=== PATIENT | female | born 1965 | race Caucasian/White ===

== ENCOUNTER 2016-08-11 09:24 | Outpatient (CLI) | payer OTHER | END 2016-08-11 09:25 | disposition home or self-care (01) | DX: E11.9 Type 2 diabetes mellitus without complications (principal) ==

== ENCOUNTER 2016-12-15 08:35 | Outpatient (CLI) | payer BC, OTHER ==
[2016-12-15 13:35] LABS: BASOPHILS % (AUTO) 0.5 %; EOSINOPHILS # (AUTO) 0.1 10^3/uL (0.0-0.7); EOSINOPHILS % (AUTO) 1.5 %; HCT - HEMATOCRIT 42.3 % (37.0-47.0); HGB - HEMOGLOBIN 13.9 g/dL (12.0-16.0); LYMPHOCYTES # (AUTO) 2.6 10^3/uL (1.5-3.5); LYMPHOCYTES % (AUTO) 34.8 %; MEAN CORPUSCULAR HGB CONC 32.9 g/dL (32.0-36.0); MEAN CORPUSCULAR VOLUME 85.2 fL (81.0-99.0); MEAN PLATELET VOLUME 7.8 fL (7.9-10.8); MONOCYTES # (AUTO) 0.4 10^3/uL (0.0-1.0); MONOCYTES % (AUTO) 5.6 %; NEUTROPHILS # (AUTO) 4.4 10^3/uL (1.5-6.6); NEUTROPHILS % (AUTO) 57.6 %; NUCLEATED RED BLOOD CELLS AUTO 0.1 /100WBC; RED BLOOD COUNT 4.96 10^6/uL (4.20-5.40); RED CELL DISTRIBUTION WIDTH 13.4 % (12.0-15.0); UNCORRECTED WHITE BLOOD COUNT 7.6 x10^3/uL; WHITE BLOOD COUNT 7.6 x10^3/uL (4.8-10.8)
[2016-12-15 13:53] LABS: HEMOGLOBIN A1C 1.04 g/dL
[2016-12-15 14:01] LABS: ALBUMIN/GLOBULIN RATIO 1.1 (1.0-2.2); BILIRUBIN,TOTAL 0.5 mg/dL (0.2-1.0); BUN - BLOOD UREA NITROGEN 14 mg/dL (6-20); CALCIUM 8.4 mg/dL (8.5-10.3); CARBON DIOXIDE - CO2 23 mmol/L (21-32); CHLORIDE 101 mmol/L (101-111); CHOL/HDL RATIO 5.1 (<4.4); CHOLESTEROL 205 mg/dL; CREATININE 0.5 mg/dL (0.4-1.0); GFR - MDRD 131 (>89); GLUCOSE 196 mg/dL (70-100); HDL CHOLESTEROL 40 mg/dL; LDL/HDL RATIO 2.9 (<4.4); POTASSIUM 3.8 mmol/L (3.5-5.0); SODIUM 134 mmol/L (135-145); TOTAL PROTEIN 7.2 g/dL (6.7-8.2); TRIGLYCERIDES 240 mg/dL; VLDL CHOLESTEROL 48 mg/dL
== END 2016-12-15 08:36 | disposition home or self-care (01) ==
LOC: LAB.WCP 08:35
PROVIDERS: ATTEND Physician Assistant Medical
DX: E11.9 Type 2 diabetes mellitus without complications (principal)
CPT/HCPCS: 36415; 80053; 80061; 83036; 85025

== ENCOUNTER 2017-03-16 07:38 | Outpatient (CLI) | payer BC ==
[2017-03-16 14:33] LABS: CALCIUM 8.7 mg/dL (8.5-10.3); POTASSIUM 3.9 mmol/L (3.5-5.0)
[2017-03-16 14:48] LABS: HEMOGLOBIN A1C 1.07 g/dL
[2017-03-16 14:53] LABS: CREATININE 0.4 mg/dL (0.4-1.0)
== END 2017-03-16 07:39 | disposition home or self-care (01) ==
LOC: LAB.WCP 07:38
PROVIDERS: ATTEND Physician Assistant Medical
DX: E11.9 Type 2 diabetes mellitus without complications (principal)
CPT/HCPCS: 36415; 80048; 83036

== ENCOUNTER 2017-08-17 07:46 | Outpatient (CLI) | payer BC ==
[2017-08-17 13:57] LABS: ALBUMIN 3.5 g/dL (3.2-5.5); ALKALINE PHOSPHATASE 55 IU/L (42-121); ALT ALANINE AMINOTRANSFERASE 21 IU/L (10-60); AST ASPARTATE AMINOTRANSFERASE 21 IU/L (10-42); BILIRUBIN,TOTAL 0.4 mg/dL (0.2-1.0); BUN - BLOOD UREA NITROGEN 10 mg/dL (6-20); CALCIUM 8.4 mg/dL (8.5-10.3); CARBON DIOXIDE - CO2 24 mmol/L (21-32); CHLORIDE 102 mmol/L (101-111); CHOL/HDL RATIO 4.9 (<4.4); CHOLESTEROL 185 mg/dL; CREATININE 0.5 mg/dL (0.4-1.0); GFR - MDRD 131 (>89); GLUCOSE 237 mg/dL (70-100); HDL CHOLESTEROL 38 mg/dL; LDL CHOLESTEROL,CALCULATED 103 mg/dL; LDL/HDL RATIO 2.7 (<4.4); SODIUM 133 mmol/L (135-145); TOTAL PROTEIN 7.1 g/dL (6.7-8.2); VLDL CHOLESTEROL 44 mg/dL
[2017-08-17 14:03] LABS: HB2 TOTAL 15.5 g/dL; HEMOGLOBIN A1C 1.15 g/dL; HEMOGLOBIN A1C % 8.9 % (4.6-6.2)
[2017-08-17 14:40] LABS: BASOPHILS % (AUTO) 0.5 %; EOSINOPHILS # (AUTO) 0.1 10^3/uL (0.0-0.7); EOSINOPHILS % (AUTO) 2.3 %; LYMPHOCYTES # (AUTO) 2.4 10^3/uL (1.5-3.5); LYMPHOCYTES % (AUTO) 43.2 %; MEAN CORPUSCULAR HEMOGLOBIN 28.7 pg (27.0-31.0); MEAN CORPUSCULAR HGB CONC 33.2 g/dL (32.0-36.0); MEAN CORPUSCULAR VOLUME 86.5 fL (81.0-99.0); MEAN PLATELET VOLUME 7.8 fL (7.9-10.8); MONOCYTES # (AUTO) 0.4 10^3/uL (0.0-1.0); MONOCYTES % (AUTO) 7.7 %; NEUTROPHILS # (AUTO) 2.5 10^3/uL (1.5-6.6); NEUTROPHILS % (AUTO) 46.3 %; PLT - PLATELET COUNT 257 10^3/uL (130-450); RED BLOOD COUNT 4.87 10^6/uL (4.20-5.40); WHITE BLOOD COUNT 5.4 x10^3/uL (4.8-10.8)
== END 2017-08-17 07:47 | disposition home or self-care (01) ==
LOC: LAB.WCP 07:46
PROVIDERS: ATTEND Physician Assistant Medical
DX: E11.9 Type 2 diabetes mellitus without complications (principal); D64.9 Anemia, unspecified
CPT/HCPCS: 36415; 80053; 80061; 83036; 83721; 85025

== ENCOUNTER 2018-01-18 07:43 | Outpatient (CLI) | payer BC ==
[2018-01-18 08:20] LABS: ALBUMIN 3.3 g/dL (3.2-5.5); ALBUMIN/GLOBULIN RATIO 0.9 (1.0-2.2); ALKALINE PHOSPHATASE 62 IU/L (42-121); ALT ALANINE AMINOTRANSFERASE 28 IU/L (10-60); AST ASPARTATE AMINOTRANSFERASE 22 IU/L (10-42); BILIRUBIN,TOTAL 0.6 mg/dL (0.2-1.0); BUN - BLOOD UREA NITROGEN 5 mg/dL (6-20); CALCIUM 8.3 mg/dL (8.5-10.3); CARBON DIOXIDE - CO2 24 mmol/L (21-32); CHLORIDE 105 mmol/L (101-111); CHOL/HDL RATIO 3.7 (<4.4); CHOLESTEROL 121 mg/dL; CREATININE 0.5 mg/dL (0.4-1.0); GFR - MDRD 131 (>89); GLUCOSE 263 mg/dL (70-100); HDL CHOLESTEROL 33 mg/dL; LDL CHOLESTEROL,CALCULATED 58 mg/dL; LDL/HDL RATIO 1.8 (<4.4); SODIUM 135 mmol/L (135-145); TOTAL PROTEIN 7.1 g/dL (6.7-8.2); VLDL CHOLESTEROL 30 mg/dL
[2018-01-18 08:22] LABS: HB2 TOTAL 15.2 g/dL; HEMOGLOBIN A1C 1.3 g/dL
== END 2018-01-18 07:44 | disposition home or self-care (01) ==
LOC: LAB 07:43
PROVIDERS: ATTEND Physician Assistant Medical
DX: E11.9 Type 2 diabetes mellitus without complications (principal)
CPT/HCPCS: 36415; 80053; 80061; 82043; 83036; 83721

== ENCOUNTER 2018-07-29 14:00 | Outpatient (CLI) | payer BC | END 2018-07-29 23:59 | disposition home or self-care (01) | LOC: LAB.WCP 14:00 | PROVIDERS: ATTEND Family Medicine | DX: R30.0 Dysuria (principal) | CPT/HCPCS: 87086; 87181 ==

== ENCOUNTER 2018-08-31 09:26 | Outpatient (CLI) | payer BC ==
[2018-08-31 09:56] LABS: CALCIUM 8.5 mg/dL (8.5-10.3); CREATININE 0.5 mg/dL (0.4-1.0)
[2018-08-31 10:19] LABS: HB2 TOTAL 16.1 g/dL; HEMOGLOBIN A1C 1.56 g/dL
== END 2018-08-31 09:27 | disposition home or self-care (01) ==
LOC: LAB 09:26
PROVIDERS: ATTEND Physician Assistant Medical
DX: E11.9 Type 2 diabetes mellitus without complications (principal)
CPT/HCPCS: 36415; 80048; 83036

== ENCOUNTER 2018-11-30 20:00 | Outpatient (CLI) | payer BC | END 2018-11-30 20:01 | disposition critical access hospital (66) | LOC: EMS 20:00 | PROVIDERS: ATTEND Surgery | DX: M54.9 Dorsalgia, unspecified (principal); M25.512 Pain in left shoulder; W10.9XXA Fall (on) (from) unspecified stairs and steps, initial encounter; Y93.01 Activity, walking, marching and hiking; Y92.009 Unspecified place in unspecified non-institutional (private) residence as the place of occurrence of the external cause | CPT/HCPCS: A0425; A0429 ==

== ENCOUNTER 2018-11-30 20:07 | Observation (INO) | payer BC ==
[2018-11-30] MEDS ORDERED: LACTATED RINGERS 1,000 ML IV ONE (20:30)
[2018-11-30 20:59] LABS: BASOPHILS % (AUTO) 0.5 %; EOSINOPHILS # (AUTO) 0.1 10^3/uL (0.0-0.7); EOSINOPHILS % (AUTO) 1.2 %; HGB - HEMOGLOBIN 15.2 g/dL (12.0-16.0); LYMPHOCYTES % (AUTO) 25.5 %; MEAN CORPUSCULAR HEMOGLOBIN 28.6 pg (27.0-31.0); MEAN CORPUSCULAR HGB CONC 32.8 g/dL (32.0-36.0); MEAN CORPUSCULAR VOLUME 87.1 fL (81.0-99.0); MEAN PLATELET VOLUME 7.9 fL (7.9-10.8); MONOCYTES # (AUTO) 0.4 10^3/uL (0.0-1.0); MONOCYTES % (AUTO) 5.5 %; NEUTROPHILS # (AUTO) 5.3 10^3/uL (1.5-6.6); NEUTROPHILS % (AUTO) 67.3 %; PLT - PLATELET COUNT 272 10^3/uL (130-450); RED BLOOD COUNT 5.33 10^6/uL (4.20-5.40); RED CELL DISTRIBUTION WIDTH 13.5 % (12.0-15.0); WHITE BLOOD COUNT 7.8 x10^3/uL (4.8-10.8)
[2018-11-30 21:07] LABS: CALCIUM 9.4 mg/dL (8.5-10.3); CREATININE 0.6 mg/dL (0.4-1.0)
[2018-11-30] MEDS ORDERED: HYDROmorphone 1 MG/ML CARPUJECT IVP STA ×2 (21:11)
--- NOTE | 2018-11-30 22:02 | ED Physician Documentation ---
PD HPI MAJOR TRAUMA - Stated complaint Stated Complaint: FELL DOWN STAIRS - Chief complaint Chief Complaint: Trauma Ch/Bk - History obtained from History obtained from: Patient, Family - History of Present Illness Mechanism of injury: Fell (down 7 steps, backwards onto left back) Where injury occurred: Home Timing - onset: Other (just prior to arrival) Injury(ies) location: Back, Left Uppper Extremity (left shoulder) Pain level max: 6 Pain level now: 6 Quality of pain: Pain, Aching Associated symptoms: LOC. No: AMS, Neck pain, Weakness, Paresthesias, Dyspnea, Nausea / vomiting, Hematemesis, Abdominal distension Symptoms improve with: Nothing Worsens with: Palpation Contributing factors: No: Anticoagulated, Intoxicated Similar symptoms before: Has not had sx before Recently seen: Not recently seen - Additional information Additional information: Pt brought in by EMS who placed pt on a back board and in Cspine precautions after pt found at bottom of stairs. She states before falling she was very dizzy and lightheaded at the top of the stairs. Pt has hx of chronic back pain. States she also has R eyebrow bruising from yesterday when she went to get up quickly and passed out hitting her forehead on tthe table. Review of Systems Ten Systems: 10 systems reviewed and negative Constitutional: denies: Fever, Chills Throat: denies: Sore throat Cardiac: reports: Palpitations. denies: Chest pain / pressure Respiratory: denies: Dyspnea, Cough GI: reports: Nausea. denies: Abdominal Pain, Abdominal Swelling, Vomiting Skin: reports: Reviewed and negative Musculoskeletal: reports: Back pain. denies: Neck pain, Extremity pain, Joint pain, Extremity swelling, Joint swelling Neurologic: reports: Syncope, LOC. denies: Generalized weakness, Focal weakness, Numbness, Difficulty speaking PD PAST MEDICAL HISTORY - Past Medical History Past Medical History: Yes Cardiovascular: None Respiratory: None Endocrine/Autoimmune: Type 2 diabetes GI: Chronic diarrhea : Frequency HEENT: Dental implants Psych: Anxiety Musculoskeletal: Fibromyalgia, Chronic back pain Derm: None - Past Surgical History Past Surgical History: Yes General: Cholecystectomy, Other Ortho: Rotator cuff repair /[employer]: section, Tubal ligation - Present Medications Home Medications: Ambulatory Orders Medication Instructions Recorded Confirmed Canagliflozin [Invokana] 300 mg PO DAILY 03/16/15 04/17/16 Gabapentin [Neurontin] 600 mg PO TID 03/16/15 04/17/16 Pantoprazole [Protonix] 40 mg PO DAILY 03/16/15 04/17/16 metFORMIN [Glucophage] 1,000 mg PO BIDWM 03/16/15 04/17/16 Cyclobenzaprine [Flexeril] 10 mg PO TID PRN 04/17/16 04/17/16 DULoxetine [Cymbalta] 90 mg PO DAILY 04/17/16 04/17/16 Hydrocodone/Acetaminophen 1 tab PO BID PRN 04/17/16 04/17/16 [Hydrocodon-Acetaminophen 5-325] Topiramate 50 mg PO DAILY 04/17/16 04/17/16 - Allergies Allergies/Adverse Reactions: Allergies Allergy/AdvReac Type Severity Reaction Status Date / Time No Known Drug Allergies Allergy Verified 03/16/15 07:31 - Social History Does the pt smoke?: No Smoking Status: Never smoker Does the pt have substance abuse?: No - Immunizations Immunizations are current?: Yes - POLST Patient has POLST: No PD ED PE NORMAL - Vitals Vital signs reviewed: Yes - General General: Alert and oriented X 3, No acute distress, Well developed/nourished - HEENT HEENT: Atraumatic, PERRL, EOMI, Moist mucous membranes, Pharynx benign - Neck Neck: Supple, no meningeal sign, No bony TTP, No JVD - Cardiac Cardiac: RRR, No murmur, No gallop, No rub - Respiratory Respiratory: No respiratory distress, Clear bilaterally - Abdomen Abdomen: Soft, Non tender, Non distended - Female Female : Deferred - Rectal Rectal: Deferred - Back Back: No CVA TTP - Derm Derm: Normal color, Warm and dry, No rash - Extremities Extremities: No deformity, No tenderness to palpate, Normal ROM s pain, No edema, No calf tenderness / cord - Neuro Neuro: Alert and oriented X 3 Eye Opening: Spontaneous Motor: Obeys Commands Verbal: Oriented GCS Score: 15 - Psych Psych: Normal mood, Normal affect PD ED PE EXPANDED - HEENT HEENT: Atraumatic. No: Head injury - Cardiac Cardiac: Other. No: Chest wall TTP (no crepitus) - Respiratory Respiratory: Clear to ausultation jose. No: Distress - Abdomen Abdomen: Normal Bowel sounds. No: Distended, Rebound, Guarding - Back Back: Straight leg raise + R, Straight leg raise + L. No: Normal ROM, Vertebral tenderness, Limited ROM - Extremities Extremities: Normal. No: Deformity, Tenderness, Limited ROM, Swelling, Bruising, Abrasion, Laceration Results - Vitals Vitals: Vital Signs - 24 hr 11/30/18 20:11 Temperature 36.5 C Heart Rate 113 H Respiratory 18 Rate Blood Pressure 134/96 H O2 Saturation 98 Oxygen O2 Source Room air - EKG (time done) No standard instances Rate: Rate (enter#) (103), Tachy Rhythm: Sinus tachycardia Clio: Normal Intervals: Prolonged QT (490) Ischemia: Normal ST segments Other comments: Other comments (repeat EKG QTC 512, rate 91, normal sinus rhythm) - Labs Labs: Laboratory Tests 11/30/18 11/30/18 11/30/18 20:54 20:54 20:54 WBC 7.8 RBC 5.33 Hgb 15.2 Hct 46.4 MCV 87.1 MCH 28.6 MCHC 32.8 RDW 13.5 Plt Count 272 MPV 7.9 Neut # (Auto) 5.3 Lymph # (Auto) 2.0 Love # (Auto) 0.4 Eos # (Auto) 0.1 Baso # (Auto) 0.0 Absolute Nucleated RBC 0.00 Nucleated RBC % 0.0 Sodium 139 Potassium 4.2 Chloride 106 Carbon Dioxide 22 Anion Gap 11.0 BUN 11 Creatinine 0.6 Estimated GFR (MDRD) 105 Glucose 291 H Calcium 9.4 Magnesium 1.8 Procedures - FAST exam (time) No standard instances FAST exam: No: Free fluid RUQ, Free fluid LUQ, Free fluid suprapubic, Pe ricardial effusion, Pneumothorax, right, Pneumothorax, left PD MEDICAL DECISION MAKING - ED course Complexity details: reviewed results, re-evaluated patient, considered differential, d/w patient, d/w family ED course: DDx -arrhythmia, pneumothorax, hemothorax, rib fracture, shoulder sprain, shoulder fracture, contusion, cspine injury, head injury, dehydration, orthostatic hypotension, vertigo. 53 y/o F with hx of chronic pain, fibromyalagia, diabetes, migraines fell down 7 steps today with negative eval for trauma. Negative head ct and cspine neg. CXR and L shoulder xray neg. No back or chest or abdominal tenderness. Neuro intact, equal strength and sensation of Upper and lower extremities. labs show normal electrolytes and moderate hyperglycemia. Multiple EKGs show QTC which is prolonged as much as 512. Given multiple syncopal episodes over 2 days feel pt needs admission for monitor ing, telemetry and futher eval. Departure - Departure Disposition: 66 [facility] DC/Xfer Clinical Impression: Prolonged QT interval, Fall (on) (from) other stairs and steps, initial encounter Syncope Qualifiers: Syncope type: unspecified Qualified Code(s): R55 - Syncope and collapse Condition: Stable Record reviewed to determine appropriate education?: Yes
--- NOTE | 2018-11-30 22:11 | CT Report ---
Reason: fall down stairs, LOC Procedure Date: 11/30/2018 Accession Number: [id number] / [id number] Procedure: CT - HEAD WO CPT Code: FULL RESULT: EXAM: CT HEAD EXAM DATE: 11/30/2018 09:47 PM. CLINICAL HISTORY: Fall down stairs, loss of consciousness. COMPARISON: HEAD W/O 11/20/2015 10:03 PM. TECHNIQUE: Multiaxial CT images were obtained from the foramen magnum to the vertex. Reformats: Sagittal and coronal. IV contrast: None. In accordance with CT protocol optimization, one or more of the following dose reduction techniques were utilized for this exam: automated exposure control, adjustment of mA and/or KV based on patient size, or use of iterative reconstructive technique. FINDINGS: Parenchyma: No intraparenchymal hemorrhage. No evidence of mass, midline shift, or CT findings of infarction. Palomares-white differentiation is distinct. Extraaxial Spaces: Normal for age. No subdural or epidural collections identified. Ventricles: Normal in size and position. Sinuses and Orbits: Bilateral optic nerve drusen again noted. Bones: No evidence of fracture or calvarial defect. Other: None. IMPRESSION: No acute or focal intracranial abnormality. [facility]
--- NOTE | 2018-11-30 22:19 | CT Report ---
Reason: fall down 7 stairs, distracting injury Procedure Date: 11/30/2018 Accession Number: [id number] / [id number] Procedure: CT - CERVICAL SPINE WO CPT Code: FULL RESULT: EXAM: CT CERVICAL SPINE WITHOUT CONTRAST DATE: 11/30/2018 09:50 PM. HISTORY: Fall down 7 stairs, distracting injury. COMPARISONS: None. TECHNIQUE: Thin-section axial images were acquired of the cervical spine without contrast. Post-processing: Coronal and sagittal reformats. Other: None. In accordance with CT protocol optimization, one or more of the following dose reduction techniques were utilized for this exam: automated exposure control, adjustment of mA and/or KV based on patient size, or use of iterative reconstructive technique. FINDINGS: Alignment: No scoliosis or spondylolisthesis. Bones: No fracture or bone lesion. Interspace Levels/Facets: C1-C2: Unremarkable. C2-C3: Unremarkable. C3-C4: Unremarkable. C4-C5: Unremarkable. C5-C6: Unremarkable. C6-C7: Unremarkable. C7-T1: Unremarkable. Musculature: Normal. No fatty atrophy. Other: The paravertebral and prevertebral soft tissues are unremarkable. The lung apices are clear. IMPRESSION: No fracture identified in the cervical spine. [facility]
--- NOTE | 2018-11-30 22:29 | XRAY Report ---
Reason: fall down stairs, L shoulder pain Procedure Date: 11/30/2018 Accession Number: [id number] / [id number] Procedure: XR - Shoulder 2 View LT CPT Code: FULL RESULT: EXAM: LEFT SHOULDER RADIOGRAPHY EXAM DATE: 11/30/2018 10:07 PM. CLINICAL HISTORY: Fall down stairs. Left shoulder pain. COMPARISON: CHEST 1 VIEW 11/30/2018 9:46 PM. TECHNIQUE: 2 views. FINDINGS: Bones: Normal. No fracture or bone lesion. Joints: The glenohumeral and acromioclavicular joints are normal. Soft tissues: The visualized hemithorax is unremarkable. No soft tissue calcification. IMPRESSION: Normal shoulder radiography. [facility]
--- NOTE | 2018-11-30 22:30 | XRAY Report ---
Reason: chest pain Procedure Date: 11/30/2018 Accession Number: [id number] / [id number] Procedure: XR - Chest 1 View X-Ray CPT Code: 12180 FULL RESULT: EXAM: CHEST RADIOGRAPHY EXAM DATE: 11/30/2018 10:07 PM. CLINICAL HISTORY: Chest pain after fall down stairs. COMPARISON: 03/29/2015 4:27 PM. TECHNIQUE: 1 view. FINDINGS: Lungs/Pleura: No focal opacities evident. No pleural effusion. No pneumothorax. Mediastinum: Within exam limitations, the cardiomediastinal contour is normal. Other: No fracture identified. IMPRESSION: Normal single view chest. [facility]
[2018-11-30] MEDS ORDERED: KETOROLAC 30 MG/ML VIAL IVP STA (23:02)
[2018-11-30] MEDS ORDERED: ONDANSETRON ODT 4 MG TABLET TL PRN (23:18)
[2018-11-30] MEDS ORDERED: SODIUM CHLORIDE FLUSH 0.9% 10 ML SYRINGE IVP PRN (23:18)
[2018-11-30] MEDS ORDERED: ONDANSETRON 4 MG/2 ML VIAL IVP PRN (23:18)
[2018-11-30] MEDS ORDERED: CYCLOBENZAPRINE 10 MG TABLET PO PRN (23:19)
--- NOTE | 2018-11-30 23:31 | HISTORY & PHYSICAL EXAMINATION ---
Chief Complaint - Chief Complaint Chief Complaint: found down at bottom of 7 steps after syncope History of Present Illness - Admitted From Admitted From:: Home/ER - History Obtained From Records Reviewed: [facility] and [facility] Ex[facility] Limitations: none - History of Present Illness HPI Comment/Other: For several years now she has had 3 types of separate episodes. One episode is associated with sudden staring, entire body stiffens as she sits or stands. She was usually sitting, and she will be out of it for seconds at a time until her body relaxes and she has no idea that she has some type of jerking stiffening spasming. The second episode she has is that of headache, photophobia, overwhelming nausea and spasmodic jerking movements of her extremities. A final third episode she has is syncope. She has been having syncope for years. She is addy if she can go 6 weeks without an episode of passing out. They happen at any time, any place. No specific inciting event or food. She will get a sudden "wash" inside of her head. And a flash of a moment she is down on the floor unconscious. It can happen when she sitting at the dinner table. It can happen laying down. It can happen walking across room. She is given up driving because she does not know when these episodes are going to happen. She is fallen bedrooms and hurt her hip, and some of her body joints but has never really smacked her head. This last time, on Thursday night, she was standing at the sink washing dishes. She felt the sudden washing her head, and the next thing she knows she is going down on the floor. She does not remember passing out, but she must of hit her face as she hit the counter on her way down to the floor. There is no loss of bowel or bladder incontinence with this. On Thursday evening she was watching TV with her . Got up to go to the bathroom and walked across the living room to get to the bedroom. Has been immediately noticed that she was "wobbling". She had that "look" like she always gets when she is about to pass out. He asked her if she was okay and he got up to follow her to make sure she stayed stable. But as she passed the steps in the hallway that went downstairs, she suddenly passed out and went down the stairs landing on her left body. He was less if she were a ragdoll that "suddenly just dropped". There is no tonic-clonic jerking movements. No bowel or bladder incontinence. She was unconscious for only a few moments and then woke up in pain because of falling on her left shoulder. She decided to come in today because she had 2 more episodes of syncope. Her felt that she should have been evaluated yesterday when she fell down the stairs. As such she presented to the emergency room with his history. She has chronic pain syndrome from her fibromyalgia, osteoarthritis, and migraine headaches. She uses Flexeril, Cymbalta, gabapentin. In the past she used to use amitriptyline. Current opioid use is steady at 1 to 2 tablets a day and remains unchanged in review of the medical record. This was done with a neurological evaluation because of episodes of difficulty with speech, headaches, facial numbness, weakness and gait instability as well as visual disturbances. In the and these were felt to be associated with migraine headaches.Carotid and vertebral ultrasounds were normal in August 2015. She did have an EEG during sleep in October 2015. It was a mildly diffusely nonspecifically slow electroencephalogram. No abnormalities to suggest a destructive cortical lesion and no distinctive epileptiform activity was noted.Pseudotumor cerebri was considered but was felt to be less likely. She was treated with Topamax. And then in November 2015 had a rather sudden onset of severe headache, global, associated with severe photophobia, and there was some slight jerking of her extremities suggestive of a seizure. She was seen in our emergency room where a lumbar puncture was unremarkable, a CT of the head was unremarkable and she was placed in observation overnight. She was unable to do an MRI because she could not sit still. She has not seen her neurologist since his half-way in 2017. She has not had a repeat EEG or neurological evaluation. In our emergency room she had a slight tachycardia to 113 with a normal blood pressure 134/96. Respirations were 18 she was 98% on room air. She had no neurological deficits. She is a tall morbidly obese female on exam with a normal cardiac, lung, and abdominal exam. However, she has a right black eye. A bruise on the lateral deltoid head. Her labs are unremarkable other than a glucose of 291. CBC was normal. And shoulder x-ray, chest x-ray head CT and cervical spine CT are all without fractures, subdurals, or acute changes. The only abnormality noted is a prolonged QT syndrome. She is now placed in observation for work-up of syncope. History - Past Medical History Cardiovascular: reports: High cholesterol Respiratory: reports: Asthma (intermittent and mild) Neuro: reports: None, Migraines Endocrine/Autoimmune: reports: Type 2 diabetes (uncontrolled with diet and metformin, A1c 11% 08/2018) GI: reports: GERD, Colon polyps (Had one 02/2015. Leiomyoma removed. Next one done 03/2016. Path neg.), Chronic diarrhea (from IBS) : reports: Chronic bladder infection, Frequency, Other (G3P) HEENT: reports: Dental implants Psych: reports: Anxiety Musculoskeletal: reports: Osteoarthritis (with spine degeneration), Fibromyalgia (seen by Spencer Todd MD at [facility] for migraines but seen by Alek Anthony MD for fibromyalgia. ), Chronic back pain Derm: reports: None MRSA Hx?: No Other Past Medical History: Chronic bilateral lacrimal glad enlargement - Past Surgical History General: reports: Cholecystectomy, Other Ortho: reports: Rotator cuff repair (left) /DISTRIBUTION SPEC: reports: section, Tubal ligation - Family & Social History Family History Comment/Other: Father of an a myocardial infarction at the age of 67. Mother has fibromyalgia, type 2 diabetes mellitus, osteoarthritis, spinal degeneration. One sister has problems with her spine from spinal degeneration. Child is healthy Living arrangement: At home Living Situation: With spouse/s.o., With family Social History Notes: Former smoker. She started about the age 27. And smoked for 16 years and quit in 2007. The most she smoked was 1 pack/day. No history of alcohol abuse. to her Second of 9 years, they live in their own home and she takes care of her grandchild who is approximately 15 now. Previous healthcare was in [place] before she moved to [facility]. She has been on disability for 4-5 years because of her fibromyalgia diagnosed in [place]. She met her second online through her children playing [employer]. He was from [place]. She came to live with him and they lived in [place] for a while and then moved [facility]. - Substance History Use: Uses substance without health or social issues: NONE, Opioid (Chronic opioid use for decades. Usually uses no more than 2 a day at most. Has a controlled substance agreement with her PCP on file. ) Use Issues: uncomplicated Abuse: Recurrent use of substance despite neg consequences: NONE Dependence: Experiences withdrawal or developed tolerances: NONE - POLST Patient has POLST: No POLST Status: Full Code Meds/Allgy - Home Medications Home Medications: Ambulatory Orders Medication Instructions Recorded Confirmed Canagliflozin [Invokana] 300 mg PO DAILY 03/16/15 04/17/16 Gabapentin [Neurontin] 600 mg PO TID 03/16/15 04/17/16 Pantoprazole [Protonix] 40 mg PO DAILY 03/16/15 04/17/16 metFORMIN [Glucophage] 1,000 mg PO BIDWM 03/16/15 04/17/16 Cyclobenzaprine [Flexeril] 10 mg PO TID PRN 04/17/16 04/17/16 DULoxetine [Cymbalta] 90 mg PO DAILY 04/17/16 04/17/16 Hydrocodone/Acetaminophen 1 tab PO BID PRN 04/17/16 04/17/16 [Hydrocodon-Acetaminophen 5-325] Topiramate 50 mg PO DAILY 04/17/16 04/17/16 - Allergies Allergies/Adverse Reactions: Allergies Allergy/AdvReac Type Severity Reaction Status Date / Time No Known Drug Allergies Allergy Verified 03/16/15 07:31 Review of Systems - Constitutional Constitutional: reports: Fatigue, Weakness - Eyes Eyes: reports: Other (photophobia w migraines). denies: Pain, Irritation, Amaurosis, Blurred vision - Ears, Nose & Throat Ears, Nose & Throat: denies: Tinnitus, Nosebleeds, Nasal obstruction, Nasal congestion, Sore throat - Cardiovascular Cariovascular: reports: Lightheadedness, Syncope. denies: Irregular heart rate, Palpitations, Chest pain, Edema, Exertional dyspnea, Decr. exercise tolerance - Respiratory Respiratory: reports: Wheezing (mild and intermittent in her life, not a problem iin PCP notes). denies: Cough, Sputum production, Hemoptysis, Orthopnea, SOB at rest - Gastrointestinal Gastrointestinal: reports: Diarrhea (negative for microscopic colitis on scope). denies: Abdominal pain, Abdominal distention, Constipation, Change in bowel habits, Rectal bleeding - Genitourinary Genitourinary: reports: Dysuria, Frequency, Urgency, Incontinence. denies: Hematuria, Flank pain, Nocturia - Musculoskeletal Musculoskeletal: reports: Muscle pain, Back pain, Muscle aches, Stiffness, Limited range of motion, Joint pain. denies: Muscle weakness, Gout, Joint swell ing - Integumentary Integumentary: denies: Rash, Pruritis, Lesions, Dryness - Neurological Neurological: reports: Headache. denies: General weakness, Focal weakness, Dizziness, Numbness, Memory problems - Psychiatric Psychiatric: reports: Depression (Depression has been worse lately. She is getting so frustrated with daily pain. She goes to sleep and pain, she wakes up in pain. She is no longer able to do any of the things she used to like to do.), Anxiety. denies: Suicidal, Delusions, Hallucinations - Endocrine Endocrine: denies: Polyuria, Polydypsia, Polyphagia - Hematologic/Lymphatic Hematologic/Lymphatic: denies: Anemia, Bruising, Petechiae Prior Level of Functionality: She does light housework. She is able to do light cooking. Feeds herself, dresses herself without aid from her . She no longer drives because she is afraid that any 1 of her 3 episodes will cause her to crash her car and harm herself or someone else. She does not use any durable medical equipment. Exam - Vital Signs Reviewed Vital Signs: Yes Vital Signs: Vital Signs x48h Temp Pulse Resp BP Pulse Ox 11/30/18 20:11 36.5 C 113 H 18 134/96 H 98 - Physical Exam General Appearance: positive: No acute distress, Alert, Other (6 foot tall, 162 kg white female who I observed getting out of bed, walking to the bathroom, washing her face, getting back in bed without any assistance, ataxia but mild to moderate achiness especially in the left shoulder) Eyes Bilateral: positive: PERRL, Other (Periorbital edema right eye with a black eye that is now developing) ENT: positive: Pharynx nml Neck: positive: No JVD. negative: Stiff neck, Carotid bruit Respiratory: positive: Chest non-tender, Other (Breath sounds diminished at bases but she is breathing without any increased respiratory effort and speaking to me and she has no increased respiratory effort and getting up to walk to the bathroom). negative: Wheezes, Rales, Rhonchi Cardiovascular: positive: Regular rate & rhythm. negative: JVD present, Systolic murmur, Gallop/S4 Peripheral Pulses: positive: 1+ Abdomen: positive: Nml bowel sounds, No distention, Tenderness (Over the left side of her abdominal wall just below her rib cage in the mid axillary line. She thinks she hurt herself as she fell down the stairs.), Other (Very large pannus, unable to assess for organomegaly). negative: Guarding, Rebound Skin: positive: Color nml, Warm, Dry Extremities: positive: Pedal edema (Trace and minimal around ankles), Other (Left shoulder joint aches. But no heat, bogginess or effusions palpated.Full range of motion on passive range of motion) Neurologic/Psychiatric: positive: Oriented x3, CN's nml (2-12), Motor nml, Sensation nml Conclusion/Plan - Problem List (1) Syncope Conclusion/Plan: This is an unfortunate female who has chronic pain syndrome and uses seizure medications, opiates, muscle relaxants. All of these could interact and cause her to be dizzy and lightheaded and to fall. She also takes Elavil, and has a prolonged QT syndrome EKG and there is a possibility of V. tach that is not documented on telemetry. She also describes changes in mental status that are acutely sudden and acutely resolving with LOC for years. Nevertheless, she is been having the same episodes of syncope over the last few days, that she's had before, but now she has really hurt herself. She was standing at the head of the stairs yesterday when she became dizzy lightheaded and fell down the stairs with syncope. CT of the head is negative. Plan: Observation Work-up for syncope including carotid Dopplers, echocardiogram, telemetry monitoring. With her previous episodes for possible seizures she is already had an EEG, carotid Dopplers and those were taken into account. Once this preliminary work-up is been completed, she will then need to seek outpatient evaluation with her ongoing relationship with neurology for further work-up of possible seizures. She may need an event monitor with cardiology. Qualifiers: Syncope type: unspecified Qualified Code(s): R55 - Syncope and collapse (2) Prolonged QT interval Conclusion/Plan: While antidepressant such as mirtazapine, citalopram, venlafaxine, trazodone, nortriptyline, desipramine, amitriptyline, etc. can cause prolonged QT. Duloxetine is not noted. Anti-convulsion drug such as fosphenytoin and felbamate are associated with prolonged QT but Neurontin and Topamax are not. She is not on Zofran. She is not on antipsychotics. She is not on any bron chodilators that are long-acting. Her electrolytes are normal including magnesium. Plan: Resume her usual medications at this time. Check EKG in the morning Toxicology screen for ELECTRICAL FITTER stimulants. (3) Fall (on) (from) other stairs and steps, initial encounter Conclusion/Plan: Evaluated by ER physician, and radiologic studies include a shoulder x-ray, chest x-ray, head CT, and cervical spine CT. No fractures noted. (4) Type II diabetes mellitus with complication, uncontrolled Conclusion/Plan: Hyperglycemia noted. A1c was at 11% in August. Will hold metformin at this time, patient may take on Invokana. Add sliding scale short acting insulin before meals.Hypoglycemia does not appear to be the cause of her syncope. (5) Chronic pain syndrome Conclusion/Plan: Due to fibromyalgia, osteoarthritis, and migraine headaches. Plan:, Resume usual medications of gabapentin, Topamax, and opiates twice a day. (6) Depression Conclusion/Plan: Depression is getting more severe this is in response to her illness. She may be helped by referral to psychology or counseling. Qualifiers: Depression Type: reactive depression Qualified Code(s): F32.9 - Major depressive disorder, single episode, unspecified - Lab Results Lab results reviewed: Yes Fish Bones: 11/30/18 20:54 11/30/18 20:54 - Diagnostic Imaging Results Diagnostic Imaging Results: positive: Final report reviewed Diagnostic Imaging Results Comments: CT HEAD EXAM DATE: 11/30/2018 09:47 PM. CLINICAL HISTORY: Fall down stairs, loss of consciousness. COMPARISON: HEAD W/O 11/20/2015 10:03 PM. TECHNIQUE: Multiaxial CT images were obtained from the foramen magnum to the vertex. Reformats: Sagittal and coronal. IV contrast: None. In accordance with CT protocol optimization, one or more of the following dose reduction techniques were utilized for this exam: automated exposure control, adjustment of mA and/or KV based on patient size, or use of iterative reconstructive technique. FINDINGS: Parenchyma: No intraparenchymal hemorrhage. No evidence of mass, midline shift, or CT findings of infarction. Palomares-white differentiation is distinct. Extraaxial Spaces: Normal for age. No subdural or epidural collections identified. Ventricles: Normal in size and position. Sinuses and Orbits: Bilateral optic nerve drusen again noted. Bones: No evidence of fracture or calvarial defect. Other: None. IMPRESSION: No acute or focal intracranial abnormality. CT CERVICAL SPINE WITHOUT CONTRAST DATE: 11/30/2018 09:50 PM. HISTORY: Fall down 7 stairs, distracting injury. COMPARISONS: None. TECHNIQUE: Thin-section axial images were acquired of the cervical spine without contrast. Post-processing: Coronal and sagittal reformats. Other: None. In accordance with CT protocol optimization, one or more of the following dose reduction techniques were utilized for this exam: automated exposure control, adjustment of mA and/or KV based on patient size, or use of iterative reconstructive technique. FINDINGS: Alignment: No scoliosis or spondylolisthesis. Bones: No fracture or bone lesion. Interspace Levels/Facets: C1-C2: Unremarkable. C2-C3: Unremarkable. C3-C4: Unremarkable. C4-C5: Unremarkable. C5-C6: Unremarkable. C6-C7: Unremarkable. C7-T1: Unremarkable. Musculature: Normal. No fatty atrophy. Other: The paravertebral and prevertebral soft tissues are unremarkable. The lung apices are clear. IMPRESSION: No fracture identified in the cervical spine. CHEST RADIOGRAPHY EXAM DATE: 11/30/2018 10:07 PM. CLINICAL HISTORY: Chest pain after fall down stairs. COMPARISON: 03/29/2015 4:27 PM. TECHNIQUE: 1 view. FINDINGS: Lungs/Pleura: No focal opacities evident. No pleural effusion. No pneumothorax. Mediastinum: Within exam limitations, the cardiomediastinal contour is normal. Other: No fracture identified. IMPRESSION: Normal single view chest. LEFT SHOULDER RADIOGRAPHY EXAM DATE: 11/30/2018 10:07 PM. CLINICAL HISTORY: Fall down stairs. Left shoulder pain. COMPARISON: CHEST 1 VIEW 11/30/2018 9:46 PM. TECHNIQUE: 2 views. FINDINGS: Bones: Normal. No fracture or bone lesion. Joints: The glenohumeral and acromioclavicular joints are normal. Soft tissues: The visualized hemithorax is unremarkable. No soft tissue calcification. IMPRESSION: Normal shoulder radiography. - EKG Results EKG Interpreted Independently: No Core Measures - Anticipated LOS I expect patient to be DC'd or transferred within 96 hours.: Yes - DVT/VTE - Prophylaxis VTE/DVT Device ordered at admit?: Yes
[2018-12-01 00:49] LABS: HB2 TOTAL 16.6 g/dL; HEMOGLOBIN A1C 1.61 g/dL
--- NOTE | 2018-12-01 01:30 | Ultrasound Report ---
Reason: multiple episodes syncope Procedure Date: 12/01/2018 Accession Number: [id number] / [id number] Procedure: US - Carotid Doppler Complete CPT Code: FULL RESULT: EXAM: BILATERAL CAROTID AND VERTEBRAL ARTERY DUPLEX DOPPLER ULTRASOUND: EXAM DATE: 12/01/2018 12:48 AM CLINICAL HISTORY: Multiple episodes syncope. COMPARISON: CAROTID DOPPLER COMPLETE 08/21/2015 9:16 AM, CERVICAL SPINE W/O 11/30/2018 9:41 PM. TECHNIQUE: Grayscale imaging, color Doppler, and duplex spectral Doppler were used to evaluate the carotid and vertebral arteries bilaterally. Static images were obtained. FINDINGS: Grayscale evaluation demonstrates no significant calcified plaque throughout the common and internal carotid arteries. There is vessel tortuosity and motion artifact obscuring the right mid internal carotid artery. Peak systolic velocities are within normal limits. Normal antegrade flow is present in bilateral vertebral arteries. VELOCITIES (cm/sec): Right CCA mid: PSV 63.8 cm/sec CCA dist: PSV 55 cm/sec ICA prox: PSV 60.2 cm/sec, EDV 7.2 cm/sec ICA mid: Shadowing plaque. ICA dist: PSV 55 cm/sec, EDV 21.6 cm/sec ECA: PSV 131 cm/sec Vert: PSV 52.3 cm/sec ICA/CCA: 0.9 Left CCA mid: PSV 52.4 cm/sec CCA dist: PSV 42.3 cm/sec ICA prox: PSV 72 cm/sec, EDV 28.1 cm/sec ICA mid: PSV 76.5 cm/sec, EDV 28.8 cm/sec ICA dist: PSV 55.6 cm/sec, EDV 11 cm/sec ECA: PSV 94.8 cm/sec Vert: PSV 73.9 cm/sec ICA/CCA: 1.1 ICA diameter stenosis: Right: <50% by velocity and <70% by NASCET criteria. Left: <50% by velocity and <70% by NASCET criteria. IMPRESSION: 1. No significant bilateral carotid artery plaquing. 2. In the right carotid artery there is suboptimal sampling of the mid internal carotid artery, otherwise no hemodynamically significant stenosis. Consider further evaluation with neck CTA if clinically indicated. 3. In the left carotid artery there are no elevated carotid artery velocities to suggest hemodynamically significant stenosis. 4. Normal antegrade flow is present in bilateral vertebral arteries. RADIA
[2018-12-01] MEDS: SODIUM CHLORIDE FLUSH 0.9% 10 ML SYRINGE IVP SCH ×2 (01:53→08:24)
[2018-12-01] MEDS: SODIUM CHLORIDE 0.9% 1,000 ML IV SCH ×2 (01:53→11:55)
[2018-12-01 03:21] LABS: MUDS CUTOFF CONCENTRATIONS CUTOFF CONC BELOW:
[2018-12-01 03:33] LABS: AMPHETAMINE SCREEN,URINE NEGATIVE (NEGATIVE); BENZODIAZEPINES SCREEN, URINE NEGATIVE (NEGATIVE); COCAINE SCREEN URINE NEGATIVE (NEGATIVE); METHAMPHETAMINES SCREEN, URINE NEGATIVE (NEGATIVE); OPIATE SCREEN, URINE POSITIVE (NEGATIVE)
[2018-12-01 03:34] LABS: METHADONE SCREEN, URINE NEGATIVE (NEGATIVE); OXYCODONE SCREEN, URINE NEGATIVE (NEGATIVE); PROPOXYPHENE SCREEN, URINE NEGATIVE (NEGATIVE); TRICYCLIC ANTIDEPRESSANT,URINE POSITIVE (NEGATIVE)
[2018-12-01] MEDS ORDERED: GABAPENTIN 300 MG CAPSULE PO SCH (06:00)
[2018-12-01] MEDS: INSULIN ASPART 300 UNIT/3 ML PEN SUBQ SCH ×2 (08:21→11:58)
[2018-12-01 09:00] VITALS: BP 128/75
[2018-12-01] MEDS ORDERED: POLYETHYLENE GLYCOL 3350 17 GM PACKET PO SCH (09:00)
[2018-12-01] MEDS ORDERED: HYDROcod/ACETAM 5/325 MG TABLET PO SCH (09:00)
[2018-12-01] MEDS ORDERED: CANAGLIFLOZIN 300 MG PO SCH (09:00)
[2018-12-01] MEDS ORDERED: DULoxetine 30 MG CAPSULE PO SCH (09:00)
[2018-12-01] MEDS ORDERED: PANTOPRAZOLE 40 MG TABLET PO SCH (09:00)
[2018-12-01] MEDS ORDERED: TOPIRAMATE 25 MG TABLET PO SCH (09:00)
[2018-12-01] MEDS ORDERED: IOVERSOL 320 100 ML VIAL IVP ONE ×2 (09:52→16:44)
--- NOTE | 2018-12-01 10:55 | CT Report ---
Reason: syncope, Carotid abnormal, persist symptom Procedure Date: 12/01/2018 Accession Number: [id number] / [id number] Procedure: CT - ANGIO NECK W/WO CPT Code: FULL RESULT: EXAM: CT ANGIOGRAM NECK EXAM DATE: 12/01/2018 10:23 AM. CLINICAL HISTORY: History of multiple episodes of syncope. COMPARISON: No prior CTA. TECHNIQUE: Routine axial helical imaging was performed from the skull base through the aortic arch. Reconstructions: Routine multiplanar 3D MIP reconstructions. IV Contrast: 80 mL Optiray 320. Evaluation of arterial stenosis is based on a NASCET method of measurement. In accordance with CT protocol optimization, one or more of the following dose reduction techniques were utilized for this exam: automated exposure control, adjustment of mA and/or KV based on patient size, or use of iterative reconstructive technique. FINDINGS: Limited arterial evaluation in the upper chest and low neck from a combination of beam-hardening artifact and relatively dilute intraluminal contrast within the arteries. As far as visualized, the left cervical vertebral artery is unremarkable but the V1 segment is incompletely visualized. As far as can be determined, the right vertebral artery is also normal but the origin is somewhat indistinct. Incomplete visualization of the proximal right common carotid artery, obscured in the low neck by streak artifact. As far as visualized, unremarkable appearance of the right cervical carotid artery without evidence of acute abnormality or significant stenosis. Normal appearance of the right cervical carotid bifurcation. Mild incidental tortuosity of the mid to distal right cervical internal carotid artery segment. No acute abnormality, significant stenosis or atherosclerotic disease of the left cervical carotid artery. The mid left cervical ICA shows marked tortuosity and a loop that is medialized into the left retropharyngeal space, for example at the C2 level. No intracranial vertebrobasilar insufficiency. Asymmetric fullness of the right lobe of the thyroid gland. Laterally in the right lobe there is a heterogeneously hypodense component measuring about 12 x 21 mm. IMPRESSION: 1. Evaluation limited in the low neck by imaging artifact but as far as can be visualized, no acute abnormality or significant stenosis of the cervical vertebral or carotid arteries and no evidence for intracranial vertebrobasilar insufficiency. 2. There is incidental tortuosity of the cervical internal carotid arteries, left greater than right. 3. Apparent asymmetric enlargement of the right lobe of the thyroid gland with relatively hypodense lesion laterally on the right that could be further assessed with thyroid ultrasound and follow-up electively. RADIA
[2018-12-01] MEDS ORDERED: HYDROcod/ACETAM 5/325 MG TABLET PO STA (11:04)
[2018-12-01] MEDS ORDERED: INSULIN ASPART 300 UNIT/3 ML PEN SUBQ SCH (12:00)
--- NOTE | 2018-12-01 13:24 | Discharge Plan ---
Discharge Plan Disposition: Home, Self Care Condition: Poor Diet: Diabetic Activity Restrictions: Activity as Tolerated Shower Restrictions: No (fall precaution, caregiver closely monitor) Instruction Topics: Syncope Additional Instructions or Follow Up instructions: You may followup your PCP in one week. All your tests, including CT of head, CTA of neck, ECHO, CT of cervical, EKG, are unremarkable in hospital. You may followup your PCP to discuss with your diabetes management. You are advised for loss of your weight, standing up slowly to prevent of the fall. Should your symptoms return or worsen, you may present ER, call 911 or your PCP for help. Follow-Up Care: Outpatient Rehab - PT, [facility] - Diabetes Ed No Smoking: If you smoke, Please STOP! Call for help. Follow-up with: Mayra Wong PA-C [Primary Care Provider] -
--- NOTE | 2018-12-01 13:36 | DISCHARGE SUMMARY ---
Discharge Summary Discharge Date: 12/01/18 Discharging Provider: GLYNN Primary Care Provider: paul Arshad Condition at Discharge: Poor Discharge Disposition: 01 Home, Self Care Discharge Facility Name: home - DIAGNOSES Admission Diagnoses: (1) Syncope (2) Prolonged QT interval (3) Fall (on) (from) other stairs and steps, initial encounter (4) Type II diabetes mellitus with complication, uncontrolled (5) Chronic pain syndrome (6) Depression Discharge Diagnoses with Status of Each Condition: 1) Syncope (2) Prolonged QT interval (3) Fall (on) (from) other stairs and steps, initial encounter (4) Type II diabetes mellitus with complication, uncontrolled (5) Chronic pain syndrome (6) Depression (7) obese - HPI History of Present Illness: refer from Dr. Valenzuela's HPI on 11/30/18 For several years now she has had 3 types of separate episodes. One episode is associated with sudden staring, entire body stiffens as she sits or stands. She was usually sitting, and she will be out of it for seconds at a time until her body relaxes and she has no idea that she has some type of jerking stiffening spasming. The second episode she has is that of headache, photophobia, overwhelming nausea and spasmodic jerking movements of her extremities. A final third episode she has is syncope. She has been having syncope for years. She is addy if she can go 6 weeks without an episode of passing out. They happen at any time, any place. No specific inciting event or food. She will get a sudden "wash" inside of her head. And a flash of a moment she is down on the floor unconscious. It can happen when she sitting at the dinner table. It can happen laying down. It can happen walking across room. She is given up driving because she does not know when these episodes are going to happen. She is fallen bedrooms and hurt her hip, and some of her body joints b ut has never really smacked her head. This last time, on Thursday night, she was standing at the sink washing dishes. She felt the sudden washing her head, and the next thing she knows she is going down on the floor. She does not remember passing out, but she must of hit her face as she hit the counter on her way down to the floor. There is no loss of bowel or bladder incontinence with this. On Thursday evening she was watching TV with her . Got up to go to the bathroom and walked across the living room to get to the bedroom. Has been immediately noticed that she was "wobbling". She had that "look" like she always gets when she is about to pass out. He asked her if she was okay and he got up to follow her to make sure she stayed stable. But as she passed the steps in the hallway that went downstairs, she suddenly passed out and went down the stairs landing on her left body. He was less if she were a ragdoll that "suddenly just dropped". There is no tonic-clonic jerking movements. No bowel or bladder incontinence. She was unconscious for only a few moments and then w ady up in pain because of falling on her left shoulder. She decided to come in today because she had 2 more episodes of syncope. Her felt that she should have been evaluated yesterday when she fell down the stairs. As such she presented to the emergency room with his history. She has chronic pain syndrome from her fibromyalgia, osteoarthritis, and migraine headaches. She uses Flexeril, Cymbalta, gabapentin. In the past she used to use amitriptyline. Current opioid use is steady at 1 to 2 tablets a day and remains unchanged in review of the medical record. This was done with a n eurological evaluation because of episodes of difficulty with speech, headaches, facial numbness, weakness and gait instability as well as visual disturbances. In the and these were felt to be associated with migraine headaches.Carotid and vertebral ultrasounds were normal in August 2015. She did have an EEG during sleep in October 2015. It was a mildly diffusely nonspecifically slow electroencephalogram. No abnormalities to suggest a destructive cortical lesion and no distinctive epileptiform activity was noted.Pseudotumor cerebri was considered but was felt to be less likely. She was treated with Topamax. And then in November 2015 had a rather sudden onset of severe headache, global, associated with severe photophobia, and there was some slight jerking of her extremities suggestive of a seizure. She was seen in our emergency room where a lumbar puncture was unremarkable, a CT of the head was unremarkable and she was placed in observation overnight. She was unable to do an MRI because she could not sit still. She has not seen her neurologist since his skilled nursing in 2017. She has not had a repeat EEG or neurological evaluation. In our emergency room she had a slight tachycardia to 113 with a normal blood pressure 134/96. Respirations were 18 she was 98% on room air. She had no neurological deficits. She is a tall morbidly obese female on exam with a normal cardiac, lung, and abdominal exam. However, she has a right black eye. A bruise on the lateral deltoid head. Her labs are unremarkable other than a glucose of 291. CBC was normal. And shoulder x-ray, chest x-ray head CT and cervical spine CT are all without fractures, subdurals, or acute changes. The only abnormality noted is a prolonged QT syndrome. She is now placed in observation for work-up of syncope. - HOSPITAL COURSE Hospital Course: (1) Syncope syncope workup including CT of head, carotid Dopplers, CTA of neck, echocardiogram, telemetry monitoring, all are unremarkable. I manually check pt's HR, it 94, pt has no more since tachycardia. With her previous episodes for possible seizures she is already had an EEG, carotid Dopplers and those were taken into account. pt is advised to followup PCP and neurology for further work-up of possible seizures as out-pt setting. pt state she feel better and walk to bathroom without any problem. she request to be d/c today. (2) Prolonged QT interval Conclusion/Plan: in pt's EKG, it shows borderline prolonged QT interval. pt is asymptomatic for cardiac distress. however pt's antidepressant and antianxiety medications can cause prolonged QT. advise pt followup her PCP to recheck her home meds. (3) Fall (on) (from) other stairs and steps, initial encounter Conclusion/Plan: Evaluated by ER physician, a shoulder x-ray, chest x-ray, head CT, and cervical spine CT reveals No fractures noted. (4) Type II diabetes mellitus with complication, uncontrolled Conclusion/Plan: Hyperglycemia and A1c was at 11.1%. discussed with pt about her diabetes care plan. she prefer to followup her PCP for management. (5) Chronic pain syndrome Conclusion/Plan: stable, reconcile her home meds. pt report she had contract with pain management plan. (6) Depression Conclusion/Plan: stable, advise pt followup her PCP for management. (7) obese pt recognize she is obese. she state she will continue loss of her weight by her exercise walker and dietary control. - ALLERGIES Allergies/Adverse Reactions: Allergies Allergy/AdvReac Type Severity Reaction Status Date / Time No Known Drug Allergies Allergy Verified 03/16/15 07:31 - MEDICATIONS Home Medications: Ambulatory Orders Medication Instructions Recorded Confirmed Gabapentin [Neurontin] 600 mg PO TID 03/16/15 12/01/18 Pantoprazole [Protonix] 40 mg PO DAILY PM 03/16/15 12/01/18 metFORMIN [Glucophage] 1,000 mg PO BIDWM 03/16/15 12/01/18 Cyclobenzaprine [Flexeril] 10 mg PO TID PRN 04/17/16 12/01/18 DULoxetine [Cymbalta] 90 mg PO DAILY 04/17/16 12/01/18 Hydrocodone/Acetaminophen 1 tab PO BID PRN 04/17/16 12/01/18 [Hydrocodon-Acetaminophen 5-325] Topiramate 50 mg PO BID 04/17/16 12/01/18 Amitriptyline [Elavil] 10 mg PO DAILY PM 12/01/18 12/01/18 Glipizide 5 mg PO BID 12/01/18 12/01/18 Pioglitazone HCl [Actos] 45 mg PO DAILY 12/01/18 12/01/18 - PHYSICAL EXAM AT DISCHARGE General Appearance: positive: No acute distress, Alert. negative: Lethargic Eyes Bilateral: positive: Normal inspection, PERRL, No lid inflammation, Conjunctivae nml ENT: positive: ENT inspection nml, Pharynx nml, No signs of dehydration. negative: Purulent nasal drainage, Pharyngeal erythema, Oral lesions Neck: positive: Nml inspection, Thyroid nml, No JVD, Trachea midline. negative: Thyromegaly, Lymphadenopathy (R), Lymphadenopathy (L), Stiff neck, Swelling/bruising, Tracheal deviation Respiratory: positive: Chest non-tender, No respiratory distress, Breath sounds nml. negative: Wheezes, Rales, Rhonchi Cardiovascular: positive: Regular rate & rhythm, No murmur, No gallop. negative: Irregularly irregular, Extrasystoles, Tachycardia, Bradycardia, JVD present, Systolic murmur, Diastolic murmur Peripheral Pulses: positive: 2+ Abdomen: positive: Non-tender, No organomegaly, Nml bowel sounds. negative: Tenderness, Guarding, Rebound Back: positive: Nml inspection. negative: CVA tenderness (R), CVA tenderness (L) Skin: positive: Color nml, No rash, Warm, Dry. negative: Cyanosis, Diaphoresis, Pallor Extremities: positive: Non-tender. negative: Calf tenderness, Jaelyn's sign/cords Neurologic/Psychiatric: positive: Oriented x3, Motor nml, Sensation nml. negative: Weakness, Sensory loss, Facial droop, Slurred/abnml speech, Depressed mood/affect - LABS Result Diagrams: 11/30/18 20:54 11/30/18 20:54 - FOLLOW UP Follow Up: You may followup your PCP in one week. All your tests, including CT of head, CTA of neck, ECHO, CT of cervical, EKG, are unremarkable in hospital. You may followup your PCP to discuss with your diabetes management. You are advised for loss of your weight, standing up slowly to prevent of the fall. Should your symptoms return or worsen, you may present ER, call 911 or your PCP for help. - TIME SPENT Time Spent in Discharge (Minutes): 50
== END 2018-12-01 14:02 | disposition home or self-care (01) ==
LOC: EDUNIT# → ED 20:07 → OBS 23:18
PROVIDERS: ADMIT Specialist; ATTEND Nurse Practitioner Gerontology
DX: R55 Syncope and collapse (principal); I45.81 Long QT syndrome; E11.65 Type 2 diabetes mellitus with hyperglycemia; G89.4 Chronic pain syndrome; F32.9 Major depressive disorder, single episode, unspecified; F41.9 Anxiety disorder, unspecified; E66.9 Obesity, unspecified; Z68.42 Body mass index [BMI] 45.0-49.9, adult; M79.7 Fibromyalgia; M19.90 Unspecified osteoarthritis, unspecified site; M54.9 Dorsalgia, unspecified; G43.909 Migraine, unspecified, not intractable, without status migrainosus; E78.00 Pure hypercholesterolemia, unspecified; J45.909 Unspecified asthma, uncomplicated; K58.9 Irritable bowel syndrome, unspecified; R35.0 Frequency of micturition; R39.15 Urgency of urination; R32 Unspecified urinary incontinence; R30.0 Dysuria; S00.11XA Contusion of right eyelid and periocular area, initial encounter; W18.30XA Fall on same level, unspecified, initial encounter; Y93.G1 Activity, food preparation and clean up; Y92.000 Kitchen of unspecified non-institutional (private) residence as the place of occurrence of the external cause; Z91.81 History of falling; Z79.891 Long term (current) use of opiate analgesic; Z79.84 Long term (current) use of oral hypoglycemic drugs; Z79.899 Other long term (current) drug therapy; Z87.440 Personal history of urinary (tract) infections; Z97.2 Presence of dental prosthetic device (complete) (partial); Z87.891 Personal history of nicotine dependence
CPT/HCPCS: 36415; 70450; 70498; 71045; 72125; 73030; 80048; 83036; 83735; 84484; 85025; 93005; 93306; 93880; 96361; 96374; 96375; 99283; 99284; A9270; G0378; J1170; J7120; Q0162; Q9967; 80306

== ENCOUNTER 2018-12-31 09:11 | Outpatient (CLI) | payer BC ==
[2018-12-31 10:27] LABS: ALBUMIN 3.6 g/dL (3.2-5.5); ALBUMIN/GLOBULIN RATIO 0.9 (1.0-2.2); ALKALINE PHOSPHATASE 54 IU/L (42-121); ALT ALANINE AMINOTRANSFERASE 22 IU/L (10-60); AST ASPARTATE AMINOTRANSFERASE 23 IU/L (10-42); BILIRUBIN,TOTAL 0.7 mg/dL (0.2-1.0); BUN - BLOOD UREA NITROGEN 13 mg/dL (6-20); CALCIUM 8.8 mg/dL (8.5-10.3); CARBON DIOXIDE - CO2 19 mmol/L (21-32); CHLORIDE 108 mmol/L (101-111); CHOL/HDL RATIO 3.9 (<4.4); CHOLESTEROL 147 mg/dL; CREATININE 0.5 mg/dL (0.4-1.0); GFR - MDRD 130 (>89); GLUCOSE 242 mg/dL (70-100); HDL CHOLESTEROL 38 mg/dL; LDL CHOLESTEROL,CALCULATED 79 mg/dL; LDL/HDL RATIO 2.1 (<4.4); SODIUM 140 mmol/L (135-145); TOTAL PROTEIN 7.4 g/dL (6.7-8.2); VLDL CHOLESTEROL 30 mg/dL
[2018-12-31 11:01] LABS: HB2 TOTAL 14.9 g/dL; HEMOGLOBIN A1C 1.34 g/dL; HEMOGLOBIN A1C % 10.4 % (4.6-6.2)
== END 2018-12-31 09:12 | disposition home or self-care (01) ==
LOC: LAB 09:11
PROVIDERS: ATTEND Physician Assistant Medical
DX: E11.9 Type 2 diabetes mellitus without complications (principal)
CPT/HCPCS: 36415; 80053; 80061; 83036; 83721

== ENCOUNTER 2019-02-02 08:00 | Outpatient (CLI) | payer BC | END 2019-02-02 23:59 | disposition home or self-care (01) | LOC: LAB.WCP 08:00 | PROVIDERS: ATTEND Physician Assistant Medical | DX: M51.36 Other intervertebral disc degeneration, lumbar region (principal) | CPT/HCPCS: 80307; 80346; 80361; 80365; 81599 ==

== ENCOUNTER 2019-04-20 11:00 | Outpatient (CLI) | payer BC ==
[2019-04-21 09:48] LABS: MUDS CUTOFF CONCENTRATIONS CUTOFF CONC BELOW:
[2019-04-21 10:06] LABS: AMPHETAMINE SCREEN,URINE NEGATIVE (NEGATIVE); BENZODIAZEPINES SCREEN, URINE NEGATIVE (NEGATIVE); COCAINE SCREEN URINE NEGATIVE (NEGATIVE); METHADONE SCREEN, URINE NEGATIVE (NEGATIVE); METHAMPHETAMINES SCREEN, URINE NEGATIVE (NEGATIVE); OPIATE SCREEN, URINE POSITIVE (NEGATIVE); OXYCODONE SCREEN, URINE NEGATIVE (NEGATIVE); PROPOXYPHENE SCREEN, URINE NEGATIVE (NEGATIVE); TRICYCLIC ANTIDEPRESSANT,URINE POSITIVE (NEGATIVE)
== END 2019-04-20 23:59 | disposition home or self-care (01) ==
LOC: LAB.R 11:00
PROVIDERS: ATTEND Physician Assistant Medical
DX: Z79.891 Long term (current) use of opiate analgesic (principal)
CPT/HCPCS: 80306

== ENCOUNTER 2019-06-13 17:05 | Emergency (ER) | payer BC ==
[2019-06-13 17:28] VITALS: BP 140/70
--- NOTE | 2019-06-13 17:47 | ED Physician Documentation ---
PD HPI SKIN - Stated complaint Stated Complaint: ABSCESS ON NECK - Chief complaint Chief Complaint: Wound - History obtained from History obtained from: Patient - History of Present Illness Timing - onset: How many weeks ago (3-4 weeks of small red bumps on left back of neck that have gotten much more red, painful and swollen the past several days.) Timing - details: Gradual onset (initially, but then abruptly bigger the past several days.) Location: Neck (left posterior) Quality / character: Painful, Discolored (red), Swelling Associated symptoms: Myalgias (chronic FM). No: Fever, N/V/D Similar symptoms before: Has not had sx before Review of Systems Constitutional: denies: Fever, Chills, Myalgias Nose: denies: Rhinorrhea / runny nose, Congestion Throat: denies: Sore throat Respiratory: denies: Cough GI: denies: Nausea, Vomiting PD PAST MEDICAL HISTORY - Past Medical History Cardiovascular: High cholesterol Respiratory: Asthma Neuro: None, Migraines Endocrine/Autoimmune: Type 2 diabetes (uncontrolled with diet and metformin, A1c 11% 08/2018) GI: GERD, Colon polyps, Chronic diarrhea : Chronic bladder infection, Frequency, Other HEENT: Dental implants Psych: Anxiety Musculoskeletal: Osteoarthritis, Fibromyalgia, Chronic back pain Derm: None - Past Surgical History Past Surgical History: Yes General: Cholecystectomy, Other Ortho: Rotator cuff repair (left) /[employer] MAINTENANCE: section, Tubal ligation - Present Medications Home Medications: Ambulatory Orders Medication Instructions Recorded Confirmed Gabapentin [Neurontin] 600 mg PO TID 03/16/15 12/01/18 Pantoprazole [Protonix] 40 mg PO DAILY PM 03/16/15 12/01/18 metFORMIN [Glucophage] 1,000 mg PO BIDWM 03/16/15 12/01/18 Cyclobenzaprine [Flexeril] 10 mg PO TID PRN 04/17/16 12/01/18 DULoxetine [Cymbalta] 90 mg PO DAILY 04/17/16 12/01/18 Hydrocodone/Acetaminophen 1 tab PO BID PRN 04/17/16 12/01/18 [Hydrocodon-Acetaminophen 5-325] Topiramate 50 mg PO BID 04/17/16 12/01/18 Amitriptyline [Elavil] 10 mg PO DAILY PM 12/01/18 12/01/18 Glipizide 5 mg PO BID 12/01/18 12/01/18 Pioglitazone HCl [Actos] 45 mg PO DAILY 12/01/18 12/01/18 Doxycycline Monohydrate 100 mg PO BID #14 tablet 06/13/19 Mupirocin 1 applic TP TID #15 g 06/13/19 - Allergies Allergies/Adverse Reactions: Allergies Allergy/AdvReac Type Severity Reaction Status Date / Time anesthetics Allergy Unknown Uncoded 06/13/19 17:28 - Social History Does the pt smoke?: No Smoking Status: Former smoker Does the pt have substance abuse?: No - Immunizations Immunizations are current?: Yes - POLST Patient has POLST: No POLST Status: Full Code PD ED PE NORMAL - Vitals Vital signs reviewed: Yes - General General: Alert and oriented X 3, No acute distress, Well developed/nourished - Cardiac Cardiac: RRR, No murmur - Respiratory Respiratory: Clear bilaterally - Derm Derm: Normal color, Warm and dry, Other (left posterior neck at hairline with rounded, raised, fluctuant red tender lesion c/w abscess. Almost pointing, but not draining. ) - Neuro Neuro: Alert and oriented X 3, No motor deficit, Normal speech Results - Vitals Vitals: Vital Signs - 24 hr 06/13/19 17:25 Temperature 36.4 C L Heart Rate 86 Respiratory 20 Rate Blood Pressure 140/70 H O2 Saturation 97 Oxygen O2 Source Room air Procedures - Abscess I&D (location) left posterior neck Preparation: Lidocaine 1%, With epi Incision: Incised with scalpel, Purulent drainage, Irrigated. No: Packed Other: Pt tolerated well, Dressing applied, Antibiotic prescribed PD MEDICAL DECISION MAKING - ED course Complexity details: considered differential, d/w patient Departure - Departure Disposition: 01 Home, Self Care Clinical Impression: Neck abscess Condition: Stable Record reviewed to determine appropriate education?: Yes Instructions: ED Abscess IandD Follow-Up: Mayra Wong PA-C [Primary Care Provider] - Prescriptions: Doxycycline Monohydrate 100 mg PO BID #14 tablet Mupirocin 1 applic TP TID #15 g Comments: Warm ice towels to the area a few times a day to promote drainage and improve blood flow to help fight the infection. Clean the area with soap and water 2-3 times a day and apply mupirocin ointment around the site. Band-Aid or bandage as it is likely to have some drainage from it. Doxycycline antibiotic twice daily for a week. This is likely a staph infection. Use the mupirocin ointment around her fingernail beds to as some of the germs can get in that area after cleaning and touching around the infection. Recheck if not improved well over the next 2 to 3 days and return sooner if worsening. Discharge Date/Time: 06/13/19 19:19
[2019-06-13] MEDS ORDERED: KETOROLAC 60 MG/2 ML VIAL IM STA (17:58)
[2019-06-13] MEDS ORDERED: HYDROmorphone 1 MG/ML CARPUJECT IM STA (17:58)
[2019-06-13] MEDS ORDERED: LIDOCAINE MPF 1%-EPI 1:200000 30 ML VIAL SUBQ STA (17:58)
[2019-06-13] MEDS ORDERED: DOXYCYCLINE 100 MG TABLET PO STA (18:00)
[2019-06-13] MEDS ORDERED: LIDOCAINE 2%-EPI 1:100000 20 ML MDV SUBQ STA (18:17)
== END 2019-06-13 19:19 | disposition home or self-care (01) ==
LOC: ED 17:05
DX: L02.11 Cutaneous abscess of neck (principal); E11.9 Type 2 diabetes mellitus without complications; Z79.84 Long term (current) use of oral hypoglycemic drugs; M79.7 Fibromyalgia; Z87.891 Personal history of nicotine dependence
CPT/HCPCS: 10060; 96372; 99283; 99284; A9270; J1170

== ENCOUNTER 2019-07-30 08:38 | Outpatient (CLI) | payer BC ==
[2019-07-30 09:09] LABS: MICROALBUM/CREATININE RATIO,UR 6.6 ug/mg (<30.0)
[2019-07-30 09:12] LABS: HEMOGLOBIN A1C 0.94 g/dL; HEMOGLOBIN A1C % 8.3 % (4.6-6.2)
[2019-07-30 09:13] LABS: ALBUMIN 3.5 g/dL (3.2-5.5); ALKALINE PHOSPHATASE 53 IU/L (42-121); ALT ALANINE AMINOTRANSFERASE 19 IU/L (10-60); AST ASPARTATE AMINOTRANSFERASE 16 IU/L (10-42); BILIRUBIN,TOTAL 0.4 mg/dL (0.2-1.0); BUN - BLOOD UREA NITROGEN 7 mg/dL (6-20); CALCIUM 8.5 mg/dL (8.5-10.3); CARBON DIOXIDE - CO2 22 mmol/L (21-32); CHLORIDE 104 mmol/L (101-111); CHOL/HDL RATIO 3.8 (<4.4); CHOLESTEROL 146 mg/dL; CREATININE 0.6 mg/dL (0.4-1.0); GFR - MDRD 105 (>89); GLUCOSE 224 mg/dL (70-100); HDL CHOLESTEROL 38 mg/dL; LDL CHOLESTEROL,CALCULATED 77 mg/dL; SODIUM 137 mmol/L (135-145); TOTAL PROTEIN 6.9 g/dL (6.7-8.2); VLDL CHOLESTEROL 31 mg/dL
== END 2019-07-30 08:39 | disposition home or self-care (01) ==
LOC: LAB 08:38
PROVIDERS: ATTEND Physician Assistant Medical
DX: E11.9 Type 2 diabetes mellitus without complications (principal)
CPT/HCPCS: 36415; 80053; 80061; 82043; 82570; 83036; 83721

== ENCOUNTER 2019-09-19 17:11 | Emergency (ER) | payer BC ==
[2019-09-19 17:20] VITALS: BP 117/73
[2019-09-19 17:38] LABS: BASOPHILS # (AUTO) 0.1 10^3/uL (0.0-0.1); BASOPHILS % (AUTO) 0.4 %; EOSINOPHILS # (AUTO) 0.1 10^3/uL (0.0-0.7); EOSINOPHILS % (AUTO) 0.9 %; HGB - HEMOGLOBIN 14.3 g/dL (12.0-16.0); LYMPHOCYTES # (AUTO) 3.2 10^3/uL (1.5-3.5); LYMPHOCYTES % (AUTO) 20.9 %; MEAN CORPUSCULAR HEMOGLOBIN 29.7 pg (27.0-31.0); MEAN CORPUSCULAR HGB CONC 33.1 g/dL (32.0-36.0); MEAN CORPUSCULAR VOLUME 89.6 fL (81.0-99.0); MEAN PLATELET VOLUME 9.1 fL (7.9-10.8); MONOCYTES % (AUTO) 6.3 %; NEUTROPHILS # (AUTO) 10.9 10^3/uL (1.5-6.6); NEUTROPHILS % (AUTO) 70.8 %; PLT - PLATELET COUNT 295 10^3/uL (130-450); RED BLOOD COUNT 4.82 10^6/uL (4.20-5.40); RED CELL DISTRIBUTION WIDTH 12.7 % (12.0-15.0); WHITE BLOOD COUNT 15.3 x10^3/uL (4.8-10.8)
[2019-09-19] MEDS ORDERED: LIDOCAINE 1% 2 ML VIAL SUBQ STA (17:44)
[2019-09-19 17:51] LABS: ALBUMIN 3.9 g/dL (3.2-5.5); BILIRUBIN,TOTAL 0.6 mg/dL (0.2-1.0); CALCIUM 8.9 mg/dL (8.5-10.3); CREATININE 0.5 mg/dL (0.4-1.0); TOTAL PROTEIN 7.7 g/dL (6.7-8.2)
--- NOTE | 2019-09-19 18:02 | ED Physician Documentation ---
History of Present Illness - Stated complaint Stated Complaint: L LEG WOUND - Chief complaint Chief Complaint: Ext Problem - Additonal information Additional information: Here today with redness and pain at her left medial thigh. She states this developed 2 days ago. She denies any fever or drainage. No injuries. Has no further complaints or concerns. She is non-insulin dependant diabetic, has had abscesses before. Denies illegal drug use. Review of Systems Constitutional: denies: Fever, Myalgias, Fatigue, Weight Loss, Sweats, Reviewed and negative, Other Nose: denies: Rhinorrhea / runny nose, Congestion, Epistaxis, Sinus pressure / pain, Foreign Body, Reviewed and negative, Other Throat: denies: Dental pain / toothache, Oral lesions / sores, Sore throat, Swollen tonsils, Reviewed and negative, Other Respiratory: denies: Dyspnea, Cough, Hemoptysis, Wheezing, Reviewed and negative, Other GI: denies: Abdominal Pain, Abdominal Swelling, Nausea, Vomiting, Constipation, Diarrhea, Bloody / black stool, Reviewed and negative, Other Musculoskeletal: reports: Extremity pain. denies: Neck pain, Back pain, Joint swelling, Pain with weight bearing, Reviewed and negative, Other Neurologic: reports: Other (no numbness or weakness) PD PAST MEDICAL HISTORY - Past Medical History Past Medical History: Yes Cardiovascular: High cholesterol Respiratory: Asthma Neuro: None, Migraines Endocrine/Autoimmune: Type 2 diabetes GI: GERD, Colon polyps, Chronic diarrhea : Chronic bladder infection, Frequency, Other HEENT: Dental implants Psych: Anxiety Musculoskeletal: Osteoarthritis, Fibromyalgia, Chronic back pain Derm: None - Past Surgical History Past Surgical History: Yes General: Cholecystectomy, Other Ortho: 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, Tubal ligation - Present Medications Home Medications: Ambulatory Orders Medication Instructions Recorded Confirmed Gabapentin [Neurontin] 600 mg PO TID 03/16/15 12/01/18 Pantoprazole [Protonix] 40 mg PO DAILY PM 03/16/15 12/01/18 metFORMIN [Glucophage] 1,000 mg PO BIDWM 03/16/15 12/01/18 Cyclobenzaprine [Flexeril] 10 mg PO TID PRN 04/17/16 12/01/18 DULoxetine [Cymbalta] 90 mg PO DAILY 04/17/16 12/01/18 Hydrocodone/Acetaminophen 1 tab PO BID PRN 04/17/16 12/01/18 [Hydrocodon-Acetaminophen 5-325] Topiramate 50 mg PO BID 04/17/16 12/01/18 Amitriptyline [Elavil] 10 mg PO DAILY PM 12/01/18 12/01/18 Glipizide 5 mg PO BID 12/01/18 12/01/18 Pioglitazone HCl [Actos] 45 mg PO DAILY 12/01/18 12/01/18 Doxycycline Monohydrate 100 mg PO BID #14 tablet 06/13/19 Mupirocin 1 applic TP TID #15 g 06/13/19 Clindamycin HCl [Clindamycin 300MG 300 mg PO Q6H #40 capsule 09/19/19 CAP] - Allergies Allergies/Adverse Reactions: Allergies Allergy/AdvReac Type Severity Reaction Status Date / Time anesthetics Allergy Unknown Uncoded 06/13/19 17:28 - Social History Does the pt smoke?: No Smoking Status: Never smoker Does the pt drink ETOH?: Yes Does the pt have substance abuse?: No - Immunizations Immunizations are current?: Yes - POLST Patient has POLST: No POLST Status: Full Code PD ED PE NORMAL - Vitals Vital signs reviewed: Yes - General General: Alert and oriented X 3, No acute distress, Well developed/nourished - HEENT HEENT: Atraumatic - Neck Neck: Supple, no meningeal sign - Cardiac Cardiac: RRR - Respiratory Respiratory: No respiratory distress - Derm Derm: Other (There is 12 cm x 24 cm area of erythema and very mild induration at the medial aspect of the left upper leg. There is a small 2cm x 1 cm fluid fluid collection central to the erythema noted with bedside U/S. ) - Extremities Extremities: No deformity, No tenderness to palpate, Normal ROM s pain, No edema - Neuro Neuro: Alert and oriented X 3, No motor deficit, No sensory deficit, Normal speech Results - Vitals Vitals: Vital Signs - 24 hr 09/19/19 17:17 Temperature 37.1 C Heart Rate 109 H Respiratory 18 Rate Blood Pressure 117/73 O2 Saturation 99 Oxygen O2 Source Room air - Labs Labs: Laboratory Tests 09/19/19 09/19/19 09/19/19 17:30 17:30 17:30 WBC 15.3 H RBC 4.82 Hgb 14.3 Hct 43.2 MCV 89.6 MCH 29.7 MCHC 33.1 RDW 12.7 Plt Count 295 MPV 9.1 Neut # (Auto) 10.9 H Lymph # (Auto) 3.2 Kimball # (Auto) 1.0 Eos # (Auto) 0.1 Baso # (Auto) 0.1 Absolute Nucleated RBC 0.00 Nucleated RBC % 0.0 Sodium 132 L Potassium 3.9 Chloride 99 L Carbon Dioxide 24 Anion Gap 9.0 BUN 8 Creatinine 0.5 Estimated GFR (MDRD) 130 Glucose 153 H Lactic Acid 2.0 Calcium 8.9 Total Bilirubin 0.6 AST 13 ALT 17 Alkaline Phosphatase 47 Total Protein 7.7 Albumin 3.9 Globulin 3.8 Albumin/Globulin Ratio 1.0 Lipase 21 L Procedures - Abscess I&D (location) Lower extremity left Preparation: Confirmed with ultrasound, Alcohol, Lidocaine 1% Incision: Incised with scalpel, Purulent drainage, Loculations broken, Irrigated, Culture obtained Other: Pt tolerated well, Antibiotic prescribed PD MEDICAL DECISION MAKING - ED course Complexity details: other (Case discussed with attending ER physician. Patient states she has a follow up with her PCP. Will continue wound care at home and oral clindamycin. Return here at anytime for any worsening sympotms. ) Departure - Departure Clinical Impression: Abscess, Cellulitis Condition: Stable Instructions: Cellulitis Dc, ED Abscess IandD Prescriptions: Clindamycin HCl [Clindamycin 300MG CAP] 300 mg PO Q6H #40 capsule
[2019-09-19] MEDS ORDERED: CLINDAMYCIN 900 MG/50 ML 50 ML IV ONE (18:29)
== END 2019-09-19 19:04 | disposition home or self-care (01) ==
LOC: ED 17:11
DX: L02.416 Cutaneous abscess of left lower limb (principal); L03.116 Cellulitis of left lower limb; E11.9 Type 2 diabetes mellitus without complications; Z79.84 Long term (current) use of oral hypoglycemic drugs
CPT/HCPCS: 10060; 36415; 80053; 83605; 83690; 85025; 87040; 87070; 87181; 87205

== ENCOUNTER 2019-09-29 13:00 | Outpatient (CLI) | payer BC | END 2019-09-29 23:59 | disposition home or self-care (01) | LOC: LAB.R 13:00 | PROVIDERS: ATTEND Physician Assistant Medical | DX: L02.91 Cutaneous abscess, unspecified (principal) | CPT/HCPCS: 87640 ==

== ENCOUNTER 2020-01-14 08:17 | Outpatient (CLI) | payer BC ==
[2020-01-14 08:55] LABS: CALCIUM 8.2 mg/dL (8.5-10.3); CREATININE 0.5 mg/dL (0.4-1.0)
[2020-01-14 09:03] LABS: HB2 TOTAL 14.6 g/dL; HEMOGLOBIN A1C 0.99 g/dL; HEMOGLOBIN A1C % 8.4 % (4.6-6.2)
== END 2020-01-14 08:18 | disposition home or self-care (01) ==
LOC: LAB 08:17
PROVIDERS: ATTEND Physician Assistant Medical
DX: E11.9 Type 2 diabetes mellitus without complications (principal)
CPT/HCPCS: 80048; 83036

== ENCOUNTER 2020-02-02 14:42 | Outpatient (CLI) | payer BC ==
[2020-02-02 18:30] LABS: BASOPHILS % (AUTO) 0.6 %; EOSINOPHILS # (AUTO) 0.2 10^3/uL (0.0-0.7); EOSINOPHILS % (AUTO) 2.6 %; HGB - HEMOGLOBIN 14.1 g/dL (12.0-16.0); LYMPHOCYTES # (AUTO) 2.6 10^3/uL (1.5-3.5); LYMPHOCYTES % (AUTO) 36.7 %; MEAN CORPUSCULAR HEMOGLOBIN 29.6 pg (27.0-31.0); MEAN CORPUSCULAR HGB CONC 32.4 g/dL (32.0-36.0); MEAN CORPUSCULAR VOLUME 91.4 fL (81.0-99.0); MEAN PLATELET VOLUME 9.8 fL (7.9-10.8); MONOCYTES # (AUTO) 0.4 10^3/uL (0.0-1.0); MONOCYTES % (AUTO) 5.1 %; NEUTROPHILS # (AUTO) 3.8 10^3/uL (1.5-6.6); NEUTROPHILS % (AUTO) 54.1 %; PLT - PLATELET COUNT 266 10^3/uL (130-450); RED BLOOD COUNT 4.76 10^6/uL (4.20-5.40); RED CELL DISTRIBUTION WIDTH 12.7 % (12.0-15.0)
[2020-02-02 19:11] LABS: FERRITIN 31.2 ng/mL (11.0-306.8)
[2020-02-02 19:12] LABS: PROLACTIN 7.14 ng/mL
== END 2020-02-02 23:59 | disposition home or self-care (01) ==
LOC: LAB.WCP 14:42
PROVIDERS: ATTEND Physician Assistant Medical
DX: N92.0 Excessive and frequent menstruation with regular cycle (principal)
CPT/HCPCS: 36415; 82728; 84146; 84443; 85025

== ENCOUNTER 2020-07-23 13:00 | Outpatient (CLI) | payer BC ==
[2020-07-23 21:43] LABS: CANDIDA GROUP DNA NEGATIVE (NEGATIVE); CANDIDA KRUSEI DNA NEGATIVE (NEGATIVE); TRICHOMONAS VAGINALIS DNA NEGATIVE (NEGATIVE)
== END 2020-07-23 23:59 | disposition home or self-care (01) ==
LOC: LAB.R 13:00
PROVIDERS: ATTEND Obstetrics & Gynecology
DX: N89.8 Other specified noninflammatory disorders of vagina (principal)
CPT/HCPCS: 87661; 87801

== ENCOUNTER 2020-08-27 10:06 | Outpatient (CLI) | payer BC ==
[2020-08-27 10:34] LABS: BASOPHILS % (AUTO) 0.5 %; EOSINOPHILS # (AUTO) 0.1 10^3/uL (0.0-0.7); EOSINOPHILS % (AUTO) 1.5 %; HCT - HEMATOCRIT 44.3 % (37.0-47.0); HGB - HEMOGLOBIN 14.4 g/dL (12.0-16.0); LYMPHOCYTES # (AUTO) 3.5 10^3/uL (1.5-3.5); LYMPHOCYTES % (AUTO) 41.3 %; MEAN CORPUSCULAR HEMOGLOBIN 29.3 pg (27.0-31.0); MEAN CORPUSCULAR HGB CONC 32.5 g/dL (32.0-36.0); MEAN CORPUSCULAR VOLUME 90.2 fL (81.0-99.0); MEAN PLATELET VOLUME 9.2 fL (7.9-10.8); MONOCYTES # (AUTO) 0.5 10^3/uL (0.0-1.0); MONOCYTES % (AUTO) 6.1 %; NEUTROPHILS # (AUTO) 4.2 10^3/uL (1.5-6.6); NEUTROPHILS % (AUTO) 50.1 %; PLT - PLATELET COUNT 303 10^3/uL (130-450); RED BLOOD COUNT 4.91 10^6/uL (4.20-5.40); WHITE BLOOD COUNT 8.4 x10^3/uL (4.8-10.8)
== END 2020-08-27 10:07 | disposition home or self-care (01) ==
LOC: LAB 10:06
PROVIDERS: ATTEND Physician Assistant Medical
DX: Z01.812 Encounter for preprocedural laboratory examination (principal); N84.0 Polyp of corpus uteri; N92.0 Excessive and frequent menstruation with regular cycle; E11.9 Type 2 diabetes mellitus without complications; Z20.822 Contact with and (suspected) exposure to COVID-19
CPT/HCPCS: 36415; 85025

== ENCOUNTER 2020-08-30 06:21 | Day surgery (SDC) | payer BC ==
[~2020-08-30 06:21] MED LIST: LACTATED RINGERS 1,000 ML IV ONE
[2020-08-30] MEDS ORDERED: CELECOXIB 100 MG CAPSULE PO ONE (06:28)
[2020-08-30] MEDS ORDERED: GABAPENTIN 400 MG CAPSULE ONE (06:28)
[2020-08-30] MEDS ORDERED: ACETAMINOPHEN 1,000 MG/100 ML 100 ML IV ONE (06:28)
[2020-08-30] MEDS ORDERED: MIDAZOLAM 2 MG/2 ML VIAL ONE (07:12)
[2020-08-30] MEDS ORDERED: fentaNYL 100 MCG/2 ML VIAL ONE ×2 (07:12→08:34)
[2020-08-30] MEDS ORDERED: PROPOFOL 200 MG/20 ML VIAL IVP ONE ×2 (07:13→08:35)
[2020-08-30] MEDS ORDERED: LIDOCAINE-MPF 2% 5 ML VIAL ONE (07:13)
--- NOTE | 2020-08-30 07:17 | ANESTHESIA ---
Pre-Anesthesia VS, & Labs - Diagnosis endometrial polyp - Procedure myosure hysteroscopy, polypectomy Vital Signs: Temp Pulse Resp BP Pulse Ox 36.1 C L 102 H 16 156/92 H 98 08/30/20 06:28 08/30/20 06:28 08/30/20 06:28 08/30/20 06:28 08/30/20 06:28 Height: 6 ft 1 in Weight (kg): 162.6 kg Body Mass Index: 47.2 BMI Classification: Morbidly Obese - NPO >8 hours Last Fluid Intake: meds this am, sips - Is Patient ?: No - Lab Results Lab results reviewed: Yes Home Medications and Allergies Home Medications: Ambulatory Orders Atorvastatin [Lipitor] 10 mg PO QPM 08/28/20 Baclofen [Lioresal] 10 mg PO BID PRN 08/28/20 Celecoxib [Celebrex] 200 mg PO QPM 08/28/20 Cholecalciferol [Vitamin D3] 25 mcg PO DAILY 08/28/20 Medroxyprogesterone Acetate [Provera] 10 mg PO DAILY 08/28/20 Rizatriptan Benzoate [Maxalt Black Top Paver Operator] 10 mg PO ONCE PRN 08/28/20 Gabapentin [Neurontin] 1,200 mg PO TID 03/16/15 metFORMIN [Glucophage] 1,000 mg PO BIDWM 03/16/15 Cyclobenzaprine [Flexeril] 10 mg PO TID PRN 04/17/16 DULoxetine [Cymbalta] 90 mg PO DAILY 04/17/16 Hydrocodone/Acetaminophen [Hydrocodon-Acetaminophen 5-325] 1 tab PO TID 04/17/16 Topiramate 50 mg PO BID 04/17/16 Amitriptyline [Elavil] 10 - 20 mg PO DAILY PM 12/01/18 Glipizide 10 mg PO BID 12/01/18 Pioglitazone HCl [Actos] 45 mg PO DAILY 12/01/18 Atorvastatin [Lipitor] 10 mg PO QPM 08/28/20 Baclofen [Lioresal] 10 mg PO BID PRN 08/28/20 Celecoxib [Celebrex] 200 mg PO QPM 08/28/20 Cholecalciferol [Vitamin D3] 25 mcg PO DAILY 08/28/20 Medroxyprogesterone Acetate [Provera] 10 mg PO DAILY 08/28/20 Rizatriptan Benzoate [Maxalt Black Top Paver Operator] 10 mg PO ONCE PRN 08/28/20 Allergies/Adverse Reactions: Allergies Allergy/AdvReac Type Severity Reaction Status Date / Time bee venom protein (honey bee) Allergy Anaphylaxis Verified 08/28/20 08:41 anesthetics Allergy Unknown Uncoded 06/13/19 17:28 Anes History & Medical History - Anesthetic History Anesthesia Complications: reports: No previous complications Family history of Anesthesia Complications: Denies Family history of Malignant Hyperthermia: Denies - Medical History Cardiovascular: reports: High cholesterol Pulmonary: reports: Asthma Gastrointestinal: reports: GERD, Colon polyps, Chronic diarrhea Urinary: reports: Incontinence, Chronic bladder infection, Frequency, Other Neuro: reports: None, Migraines Musculoskeletal: reports: Osteoarthritis, Fibromyalgia, Chronic back pain Endocrine/Autoimmune: reports: Type 2 diabetes Skin: reports: None Smoking Status: Never smoker - Surgical History General: reports: Cholecystectomy, Colonoscopy, Other Gynecologic: reports: section, Tubal ligation Orthopedic: reports: Rotator cuff repair Exam General: Alert, Oriented x3, Cooperative Dental: WNL Mouth Openin Fingerbreadth Neck Mobility: Normal Mallampati classification: III Thyromental Distance: 4-6 cm Respiratory: Lungs clear, Normal breath sounds Cardiovascular: Regular rate Neurological: Normal speech Mental/Cognitive Status: Alert/Oriented X3, Normal for patient Cognitive Status: Within normal limits Plan Anesthesia Type: General Consent for Procedure(s) Verified and Reviewed: Yes Code Status: Attempt Resuscitation ASA classification: 3-Severe systemic disease Is this case an emergency?: No
[2020-08-30] MEDS ORDERED: BUPIVACAINE 0.25% PF 30 ML VIAL ONE (07:26)
[2020-08-30] MEDS ORDERED: LIDOCAINE 2%-EPI 1:100000 20 ML MDV ONE (07:26)
[2020-08-30] MEDS ORDERED: ROCURONIUM 50 MG/5 ML VIAL ONE (07:33)
[2020-08-30] MEDS ORDERED: SUCCINYLCHOLINE 200 MG/10 ML VIAL ONE (07:33)
--- NOTE | 2020-08-30 07:45 | HISTORY & PHYSICAL EXAMINATION ---
HPI - History of Present Illness HPI Comment/Other: CC: PreOp HPI: Pt is here today for a PreOp consult for hysteroscopy polypectomy ...................................................................KUNAL Sommer August 21, 2020 3:08 PM Patient is a 55-year-old here preop assessment for abnormal vaginal bleeding. Last seen in [facility] on 07/23/20 and reported the following: Reports that menses are abnormal. They have always been heavy but have become heavier and more irregular. Oligomenorrhea with she was young. Took combined oral contraceptives to regulate her cycle. Cycles became more frequent iwth age. Most recently, she has been having menses twice a month in the last year. She had beavy flow for entire month last month. Has begun to taper in volume. . She has been wearing a pad every day because she cannot predict when bleeding is going to occur. She wears 2 pads at a time because blood flow is so heavy. She regularly soaks her clothing and stains her furniture. Uses hospital pads on her furniture to protect them. When she toilets, she notes a "rotten" smell. Her partner has not commented on it She has a complicated PMH couple with propensity for frequent falls. She had quit smoking and was working on getting healthy, walking more thn 12 miles a day. She started having unpredictable falls and that has limited her activity. Has chronic pain and fibromyollgia. Arthirits and daily headaches. Poorly controllled diabetes. No SA at present. Has not had SA in oneyear 2/2 pain. Has had one CS at 46 [facility] for distress. Last pap was in 2016 and was wnl. Abnl pap in 2019, normal on fu. No STIs. Pelvic us on 02/23/2020 FINDINGS: Transabdominal scanning: Limited scanning through the kidneys shows no hydronephrosis. No pathologic free abdominal or pelvic fluid. Endovaginal scanning: Uterus: Uterus is anteverted and normal in size at 8.7 x 4.4 x 5.1 cm. There is a moderate amount of fluid in the endocervix surrounding a sessile echogenic vascular polyp measuring 1.5 x 0.4 x 0.4 Has seen anestheisa and rec are on file. Preop EMB wnl No changes in health hx other than as above Allergies: ANESTHIA (Critical) Medications: MEDROXYPROGESTERONE ACETATE 10 MG ORAL TABLET (MEDROXYPROGESTERONE ACETATE) Take one tablet by mouth daily; Route: ORAL ALPRAZOLAM 0.5 MG ORAL TABLET (ALPRAZOLAM) Take one tablet by mouth one hour before procedure; repeat at time of procedure if needed; Route: ORAL FAMOTIDINE 20 MG ORAL TABLET (FAMOTIDINE) Take one tablet by mouth twice daily for indigestion; Route: ORAL MUPIROCIN OINTMENT (MUPIROCIN OINT) one application three times a day; Route: TRANSDERMAL PEN NEEDLES 32G X 5 MM (INSULIN PEN NEEDLE) Use to inject diabetic daily medication as directed CELECOXIB 200 MG ORAL CAPSULE (CELECOXIB) Take one capsule by mouth once daily with food for arthritis or pain; Route: ORAL DULOXETINE HCL 30 MG CPEP (DULOXETINE HCL) TAKE 3 CAPSULES BY MOUTH ONCE DAILY GLIPIZIDE 10 MG ORAL TABLET (GLIPIZIDE) Take one tablet by mouth twice daily for diabetes; Route: ORAL GABAPENTIN 600 MG TABS (GABAPENTIN) TAKE 2 TABLETS BY MOUTH THREE TIMES DAILY RANITIDINE HCL 300 MG ORAL TABLET (RANITIDINE HCL) TAKE 1 TABLET BY MOUTH ONCE DAILY AT BEDTIME FOR GASTRIC PAIN * DISABLED PARKING PERMIT walking severely limited due to arthritic, neurological, or orthopedic condition AMITRIPTYLIN 10MG TAB (AMITRIPTYLINE HCL) TAKE 1 TO 2 TABLETS BY MOUTH ONCE DAILY AT BEDTIME PIOGLITAZONE HCL 45 MG ORAL TABLET (PIOGLITAZONE HCL) Take 1 tablet by mouth once daily MAXALT-DIESEL STATIONARY ENGINEER 10 MG ORAL TABLET DISINTEGRATING (RIZATRIPTAN BENZOATE) Dissolve one tablet on tongue at onset of headache. May repeat in 2 hours; Route: ORAL ATORVASTATIN 10MG TAB (ATORVASTATIN CALCIUM) TAKE 1 TABLET BY MOUTH ONCE DAILY AT BEDTIME NORCO 5-325 MG ORAL TABLET (HYDROCODONE-ACETAMINOPHEN) Take one tablets by mouth three times daily as needed for low back and leg pain; Route: ORAL CYCLOBENZAPRINE HCL 10 MG ORAL TABLET (CYCLOBENZAPRINE HCL) TAKE 1 TABLET BY MOUTH UP TO THREE TIMES DAILY NEEDED FOR MUSCLE SPASMS TOPIRAMATE 50 MG ORAL TABLET (TOPIRAMATE) Take 1 tablet by mouth twice daily * STIRRUP ANKLE BRACE dx: left ankle sprain, length of need 2 months EPIPEN 2-MELANIE 0.3 MG/0.3ML INJECTION SOLUTION AUTO-INJECTOR (EPINEPHRINE) Use as needed for severe allergic reaction according to medical device sales METFORMIN 1000MG TAB (METFORMIN HCL) TAKE ONE TABLET BY MOUTH TWICE DAILY Problems: Preoperative examination (ICD-V72.84) (ETR41-J88.818) Vaginal odor (ICD-625.8) (IES06-Z64.8) Endometrial polyp (ICD-621.0) (FXU67-E32.0) Screening for cervical cancer (ICD-V76.2) (RAF43-Y48.4) Nasal infection (ICD-473.9) (ZIR56-A70.9) Ovarian mass (ICD-620.9) (FNM31-G69.9) Menorrhagia (ICD-626.2) (DNQ87-U10.0) Abscess (ICD-682.9) (FUO94-P68.91) Syncope and collapse (ICD-780.2) (ZBD88-N74) Prolonged QT interval (ICD-426.82) (VOC52-G47.81) BREAST MASS (ICD-611.72) (CEI13-J17.0) Dysuria (ICD-788.1) (QBD21-I18.0) jail (current) use of opiate analgesic (ICD-V58.69) (JBR07-Y21.891) ARTHRALGIA (ICD-719.40) (AUA09-Q01.50) Migraine (ICD-346.90) (RBD20-O74.909) Hyperlipidemia (ICD-272.4) (QXV19-R82.5) Fibromyalgia, severe (ICD-729.1) (THT68-M80.7) Preventive health care (ICD-V70.0) (MQC28-G60.00) Anxiety, situational (ICD-308.3) (RKW87-A39.0) Screening for mlig neop, breast, NOS (ICD-V76.10) (NBT05-W04.9) Degenerative disc disease, lumbar spine (ICD-722.52) (GMZ76-I35.36) Chronic lacrimal gland enlargement, 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) (VWG93-O06.033) 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) (TIG96-X67.6) GERD (ICD-530.81) (ZDZ37-P54.9) Anemia (ICD-285.9) (TBE61-O82.9) Abnormal pap smear (ICD-795.00) (BQO98-O09.6) Low back pain, chronic (ICD-724.2) (CSY82-J87.5) Asthma, intermittent, mild (ICD-493.90) (KXS22-X15.20) IBS (ICD-564.1) (DXG00-S33.9) Diabetes mellitus, type II (ICD-250.00) (AIV17-M83.9) Risk Factors-CCC with prev: Smoked Tobacco Use: Former smoker Year Quit: 2007 Years Since Last Quit: 13 Smokeless Tobacco Use: Never Passive Smoke Exposure: no Alcohol Use: no Drug Use: no Vital Signs: Patient Profile: 55 Years Old Female Height: 70.75 inches Weight: 361 pounds BMI: 50.89 BP sittin / 85 Cuff size: large Vitals Entered By: KUNAL Sommer (August 21, 2020 3:08 PM) Meds Reviewed: Done Allergies Reviewed: Done Past Medical History: Severe snoring Diabetes, Type 2 Anxiety Depression Claustrophobia Chronic diarrhea GERD anemia Past Surgical History: lap carol C section Left rotator cuff repair polypectomy [employer] Review of Systems ROS Comments: As per HPI, otherwise remaining systems are negative. Physical Constitutional: GEN: NAD HEAD: NCAT EYES: No scleral icterus or conjunctival injection NECK: No cervical LAD or TM CV: RRR RESP: CTAB, normal effort ABD: S&NT/ND PSYCH: appropriate affect NEURO: alert and oriented, normal gait and coordination EXT: WWP VULVA: Normal external female genitalia. Normal Bartholin's, [place]'s, urethra meatus and anus. No inguinal lymphadenopathy. VAGINA: Speculum exam reveals normal vaginal mucosa, pink, moist, rugated. Physiologic discharge and no lesions or abnormal discharge. Cervix: Nulliparous without lesions or disharge Uterus: Mobile, NT, normal size and contour. Exam limited by habitus ADNEXA: no adnexal masses or tenderness. Exam limited by habitus Impression & Recommendations: Problem # 1: Preoperative examination (ICD-V72.84) (VUV40-I32.818) Orders: PRE OP -[id number] ([id number]) Reviewed risks/benefits/a;aternatives Risks include, but are not limited to bleeding, infection, damage to nearby tissue and orgrans. Consents to transfusion. Aware of risk of infection and transfusion reaction. Review low infection risk profile, although higher given glucose status. Reiviewed that in the setting of uncontroled bleeding with performation, will need to convert to open. Not cleared for laparoscopic procedure. Pateint acknowledged the above, all questions were addressed, and written informed consent was obtained for hysteroscopy polypectomy and D&C. Patient Portal: [id number] Gender ID Identifies as Female P: 1 A: 1 Height: 70.75 (07/23/2020 12:56:07 PM) Weight: 361 Gonnorhea: negative (07/23/2020 4:52:06 PM) Chlamydia: negative (07/23/2020 4:52:06 PM) Gonnorrhea: negative (07/23/2020 4:52:06 PM) Chlamydia: negative (07/23/2020 4:52:06 PM) Last Mammo: birads 2 benign (01/13/2019 3:51:29 PM) Last Pap: normal (07/23/2020 4:52:06 PM) Current Allergies: ANESTHIA (Critical) Current Meds: MEDROXYPROGESTERONE ACETATE 10 MG ORAL TABLET (MEDROXYPROGESTERONE ACETATE) Take one tablet by mouth daily; Route: ORAL ALPRAZOLAM 0.5 MG ORAL TABLET (ALPRAZOLAM) Take one tablet by mouth one hour b efore procedure; repeat at time of procedure if needed; Route: ORAL FAMOTIDINE 20 MG ORAL TABLET (FAMOTIDINE) Take one tablet by mouth twice daily for indigestion; Route: ORAL MUPIROCIN OINTMENT (MUPIROCIN OINT) one application three times a day; Route: TRANSDERMAL PEN NEEDLES 32G X 5 MM (INSULIN PEN NEEDLE) Use to inject diabetic daily medication as directed CELECOXIB 200 MG ORAL CAPSULE (CELECOXIB) Take one capsule by mouth once daily with food for arthritis or pain; Route: ORAL DULOXETINE HCL 30 MG CPEP (DULOXETINE HCL) TAKE 3 CAPSULES BY MOUTH ONCE DAILY GLIPIZIDE 10 MG ORAL TABLET (GLIPIZIDE) Take one tablet by mouth twice daily for diabetes; Route: ORAL GABAPENTIN 600 MG TABS (GABAPENTIN) TAKE 2 TABLETS BY MOUTH THREE TIMES DAILY RANITIDINE HCL 300 MG ORAL TABLET (RANITIDINE HCL) TAKE 1 TABLET BY MOUTH ONCE DAILY AT BEDTIME FOR GASTRIC PAIN * DISABLED PARKING PERMIT walking severely limited due to arthritic, neurological, or orthopedic condition AMITRIPTYLIN 10MG TAB (AMITRIPTYLINE HCL) TAKE 1 TO 2 TABLETS BY MOUTH ONCE DAILY AT BEDTIME PIOGLITAZONE HCL 45 MG ORAL TABLET (PIOGLITAZONE HCL) Take 1 tablet by mouth once daily MAXALT-DIESEL STATIONARY ENGINEER 10 MG ORAL TABLET DISINTEGRATING (RIZATRIPTAN BENZOATE) Dissolve one tablet on tongue at onset of headache. May repeat in 2 hours; Route: ORAL ATORVASTATIN 10MG TAB (ATORVASTATIN CALCIUM) TAKE 1 TABLET BY MOUTH ONCE DAILY AT BEDTIME NORCO 5-325 MG ORAL TABLET (HYDROCODONE-ACETAMINOPHEN) Take one tablets by mouth three times daily as needed for low back and leg pain; Route: ORAL CYCLOBENZAPRINE HCL 10 MG ORAL TABLET (CYCLOBENZAPRINE HCL) TAKE 1 TABLET BY MOUTH UP TO THREE TIMES DAILY NEEDED FOR MUSCLE SPASMS TOPIRAMATE 50 MG ORAL TABLET (TOPIRAMATE) Take 1 tablet by mouth twice daily * STIRRUP ANKLE BRACE dx: left ankle sprain, length of need 2 months EPIPEN 2-MELANIE 0.3 MG/0.3ML INJECTION SOLUTION AUTO-INJECTOR (EPINEPHRINE) Use as needed for severe allergic reaction according to medical device sales METFORMIN 1000MG TAB (METFORMIN HCL) TAKE ONE TABLET BY MOUTH TWICE DAILY PMH/PSH - Past Medical History Cardiovascular: positive: High cholesterol Respiratory: positive: Asthma Neuro: positive: None, Migraines Endocrine/Autoimmune: positive: Type 2 diabetes GI: positive: GERD, Colon polyps, Chronic diarrhea : positive: Incontinence, Chronic bladder infection, Frequency, Other HEENT: positive: Chronic vision loss, Dental implants Psych: positive: Depression, Anxiety, Claustrophobia Musculoskeletal: positive: Osteoarthritis, Fibromyalgia, Chronic back pain Derm: positive: None MRSA Hx?: No - Past Surgical History General: positive: Cholecystectomy, Colonoscopy, Other Ortho: positive: Rotator cuff repair /[employer]ANT: positive: section, Tubal ligation Social & Family Hx - Social History Does the pt smoke?: No Smoking Status: Never smoker Does the pt drink ETOH?: Yes Does the pt have substance abuse?: No - POLST Patient has POLST: No POLST Status: Full Code Meds/Allgy - Home Medications Home Medications: Ambulatory Orders Medication Instructions Recorded Confirmed Gabapentin [Neurontin] 1,200 mg PO TID 03/16/15 08/30/20 metFORMIN [Glucophage] 1,000 mg PO BIDWM 03/16/15 08/28/20 Cyclobenzaprine [Flexeril] 10 mg PO TID PRN 04/17/16 08/28/20 DULoxetine [Cymbalta] 90 mg PO DAILY 04/17/16 08/30/20 Hydrocodone/Acetaminophen 1 tab PO TID 04/17/16 08/30/20 [Hydrocodon-Acetaminophen 5-325] Topiramate 50 mg PO BID 04/17/16 08/28/20 Amitriptyline [Elavil] 10 - 20 mg PO DAILY PM 12/01/18 08/28/20 Glipizide 10 mg PO BID 12/01/18 08/28/20 Pioglitazone HCl [Actos] 45 mg PO DAILY 12/01/18 08/28/20 Atorvastatin [Lipitor] 10 mg PO QPM 08/28/20 08/28/20 Baclofen [Lioresal] 10 mg PO BID PRN 08/28/20 08/30/20 Celecoxib [Celebrex] 200 mg PO QPM 08/28/20 08/28/20 Cholecalciferol [Vitamin D3] 25 mcg PO DAILY 08/28/20 08/28/20 Medroxyprogesterone Acetate 10 mg PO DAILY 08/28/20 08/28/20 [Provera] Rizatriptan Benzoate [Maxalt Scada Technician] 10 mg PO ONCE PRN 08/28/20 08/28/20 - Allergies Allergies/Adverse Reactions: Allergies Allergy/AdvReac Type Severity Reaction Status Date / Time bee venom protein (honey bee) Allergy Anaphylaxis Verified 08/28/20 08:41 anesthetics Allergy Unknown Uncoded 06/13/19 17:28 Exam - Vital Signs Vital Signs: Vital Signs x48h Temp Pulse Resp BP Pulse Ox 08/30/20 06:28 97.0 F L 102 H 16 156/92 H 98 Results - Lab Results Other Lab Results: Lab Results x24hrs 08/30/20 Range/Units 07:13 POC Whole Bld Glucose 248 H (70 - 100) mg/dL
[2020-08-30] MEDS ORDERED: LIDOCAINE 2%-EPI 1:100000 20 ML MDV SUBQ ONE (08:27)
[2020-08-30] MEDS ORDERED: BUPIVACAINE 0.25% PF 30 ML VIAL SUBQ ONE (08:28)
[2020-08-30] MEDS ORDERED: MORPHINE 2 MG/ML CARPUJECT IVP PRN (08:35)
[2020-08-30] MEDS ORDERED: ATROPINE ABBOJECT 1 MG/10 ML SYRINGE IVP PRN (08:35)
[2020-08-30] MEDS ORDERED: ePHEDrine 50 MG/ML VIAL IVP PRN (08:35)
[2020-08-30] MEDS ORDERED: ONDANSETRON 4 MG/2 ML VIAL IVP PRN (08:35)
[2020-08-30] MEDS ORDERED: NALOXONE 0.4 MG/ML VIAL IVP PRN (08:35)
[2020-08-30] MEDS ORDERED: fentaNYL 100 MCG/2 ML VIAL IVP PRN (08:35)
[2020-08-30] MEDS ORDERED: HYDROmorphone 0.5 MG/0.5 ML SYRINGE IVP PRN (08:35)
[2020-08-30] MEDS ORDERED: METOCLOPRAMIDE 10 MG/2 ML VIAL IVP PRN (08:35)
[2020-08-30] MEDS ORDERED: GLYCOPYRROLATE 1 MG/5 ML VIAL ONE (08:38)
[2020-08-30] MEDS ORDERED: NEOSTIGMINE 1 MG/1 ML 10 ML MDV ONE (08:38)
[2020-08-30] MEDS ORDERED: LACTATED RINGERS 1,000 ML IV ONE ×2 (08:51→10:00)
[2020-08-30] MEDS ORDERED: LACTATED RINGERS 1,000 ML IV SCH (09:00)
[2020-08-30] MEDS ORDERED: oxyCODONE 5 MG TABLET PO PRN (09:16)
[2020-08-30] MEDS ORDERED: HYDROmorphone 1 MG/ML CARPUJECT ONE (09:24)
--- NOTE | 2020-08-30 09:27 | OPERATIVE REPORT ---
Operative Report - General Procedure Date: 08/30/20 Planned Procedure: Risks benefits and alternatives to the procedure were reviewed. Consent was again confirmed. Patient was taken to the operating room where she underwent general anesthesia. She was positioned in dorsolithotomy position with legs resting in yellowfin stirrups. She was prepped and draped in the usual sterile fashion. Preoperative antibiotics were not indicated. Preoperative checklist was performed. Exam under anesthesia was performed. Speculum was placed in the vagina and the cervix was visualized. Single-tooth tenaculum was placed at the anterior cervical lip. Paracervical block was administered using a total of 20 cc of 1% lidocaine with epinephrine was injected at the 4:00 and 8:00 positions lateral to the portio of the cervix. The cervical os was serially dilated with Hegar dilators to accommodate the caliber of the diagnostic hysteroscope. The hysteroscope was inserted and findings were noted as above. The hysteroscopic morcellator was inserted through the operative port. The intrauterine polyps were morcellated under direct visualization. Uterine cavity was smooth at close of the procedure. Hysteroscope was removed. All instruments were removed from the uterus. Tenaculum was removed. Tenaculum sites were noted to be hemostatic. All instruments were removed from the vagina. Procedure was well-tolerated without complication. Fluid deficit: 345 cc NS Pre-Op Diagnosis: Dysfunctional vaginal bleeding, BMI >50 Procedure Performed: Hysteroscopy D&C Post Op Diagnosis: Same - Procedure Note Primary Surgeon: Leanna Shea MD Anesthesia Provider: Trino Collier CRNA Anesthesia Technique: General ET tube Pathology: Uterine contents IV Fluids (mL): 800 Estimated Blood Loss (mL): 5 Urine Output (mL): 0 (voided prior to procedure) Indications: Patient is a 55-year-old here preop assessment for abnormal vaginal bleeding in the setting of elevated BMI. Seen in clinic on 07/23/20 and reported the following: Reports that menses are abnormal. They have always been heavy but have become heavier and more irregular. Oligomenorrhea with she was younger. Took combined oral contraceptives to regulate her cycle. Cycles became more frequent with age. Most recently, she has been having menses twice a month in the last year. She had heavy flow for entire month last month. Has begun to taper in volume. She has been wearing a pad every day because she cannot predict when bleeding is going to occur. She wears 2 pads at a time because blood flow is so heavy. She regularly soaks her clothing and stains her furniture. Uses hospital pads on her furniture to protect them. When she toilets, she notes a "rotten" smell. Her partner has not commented on it She has a complicated PMH couple with propensity for frequent falls. She had quit smoking and was working on getting healthy, walking more than 12 miles a day. She started having unpredictable falls and that has limited her activity. Has chronic pain and fibromyalgia. Arthirits and daily headaches. Poorly controllled diabetes. No SA at present. Has not had SA in one year 2/2 pain. Has had one CS at 46 [facility] for distress. Last pap was in 2016 and was wnl. Abnl pap in 2019, normal on fu. No STIs. Findings: Normal appearing uterine cavity with thickened endometrium and normal bilateral tubal ostia. Complications: None - Other Other Information/Narrative: Risks benefits and alternatives to the procedure were reviewed. Consent was again confirmed. Patient was taken to the operating room where she underwent general anesthesia. She was positioned in dorsolithotomy position with legs resting in yellowfin stirrups. She was prepped and draped in the usual sterile fashion. Preoperative antibiotics were not indicated. Preoperative checklist was performed. Exam under anesthesia was performed. Speculum was placed in the vagina and the cervix was visualized. Single-tooth tenaculum was placed at the anterior cervical lip. Paracervical block was administered using a total of 20 cc of 1% lidocaine with epinephrine was injected at the 4:00 and 8:00 positions lateral to the portio of the cervix. The cervical os was serially dilated with Hegar dilators to accommodate the caliber of the diagnostic hysteroscope. The hysteroscope was inserted and findings were noted as above. The hysteroscopic morcellator was inserted through the operative port. The D&C was performed under direct visualization to avoid any potential complications from perforation in this high risk patient. Uterine cavity was smooth at close of the procedure. Hysteroscope was removed. All instruments were removed from the uterus. Tenaculum was removed. Tenaculum sites were noted to be hemostatic. All instruments were removed from the vagina. Procedure was well-tolerated without complication. Fluid deficit: 345 cc NS
[2020-08-30 10:47] VITALS: BP 116/74
--- NOTE | 2020-08-30 15:03 | ANESTHESIA POST OP EVALUATION ---
Anesthesia Post Eval - Post Anesthesia Eval Vitals: Last Vital Signs Temp 36.3 C L 08/30/20 10:45 Pulse 110 H 08/30/20 10:45 Resp 14 08/30/20 10:45 BP 116/74 08/30/20 10:45 Pulse Ox 92 08/30/20 10:45 CV Function Including HR & BP: positive: Stable Pain Control: positive: Satisfactory Nausea & Vomiting: positive: Negative Mental Status: positive: Patient Participates Respiratory Status: Airway Patent Hydration Status: Satisfactory Anesthesia Complications: positive: None
== END 2020-08-30 06:22 | disposition home or self-care (01) ==
LOC: SDS 06:21
PROVIDERS: ATTEND Obstetrics & Gynecology
PROC: 0UB98ZZ Excision of Uterus, Via Natural or Artificial Opening Endoscopic (ICD-10-PCS; principal; 2020-08-30 07:30)
DX: E11.9 Type 2 diabetes mellitus without complications (principal); D64.9 Anemia, unspecified; K21.9 Gastro-esophageal reflux disease without esophagitis; E78.00 Pure hypercholesterolemia, unspecified; K52.9 Noninfective gastroenteritis and colitis, unspecified; G43.909 Migraine, unspecified, not intractable, without status migrainosus; F32.9 Major depressive disorder, single episode, unspecified; F41.9 Anxiety disorder, unspecified; F40.240 Claustrophobia; M79.7 Fibromyalgia; G89.29 Other chronic pain; M54.9 Dorsalgia, unspecified; M19.90 Unspecified osteoarthritis, unspecified site; R32 Unspecified urinary incontinence; R35.0 Frequency of micturition; R06.83 Snoring; E66.01 Morbid (severe) obesity due to excess calories; Z68.42 Body mass index [BMI] 45.0-49.9, adult; Z91.81 History of falling; Z79.4 Long term (current) use of insulin; Z87.891 Personal history of nicotine dependence; Z79.899 Other long term (current) drug therapy
CPT/HCPCS: 58558; A9270; J0131; J0330; J1170; J7120

== ENCOUNTER 2020-09-14 17:18 | Emergency (ER) | payer BC ==
[2020-09-14 19:44] VITALS: BP 128/81
--- NOTE | 2020-09-14 20:20 | ED Physician Documentation ---
PD HPI SKIN - Stated complaint Stated Complaint: RT LEG CYST - Chief complaint Chief Complaint: Wound - History obtained from History obtained from: Patient - History of Present Illness Timing - onset: How many days ago (5) Timing - duration: Days (5) Timing - details: Gradual onset, Still present Location: RLE Quality / character: Painful, Raised, Swelling. No: Draining Associated symptoms: Myalgias, Other (fatigue and elevated blood sugar). No: Fever, Headache, Facial swelling, Dyspnea, Abd pain, N/V/D Contributing factors: Unknown Similar symptoms before: Diagnosis (abcess) Recently seen: Not recently seen - Additional information Additional information: 54-year-old type II diabetic has developed an area on her right posterior thigh that is tender and swollen. It is erythematous. She has had prior abscess requiring I&D. She improved with use of clindamycin. She is developed symptoms again on the right posterior thigh and she has noted that her sugars been running high and she has polyuria polydipsia. She has reduced her intake of food and despite this her sugars have remained about 300. Review of Systems Constitutional: reports: Fatigue. denies: Fever Eyes: denies: Decreased vision Ears: denies: Ear pain Throat: denies: Sore throat Respiratory: denies: Cough GI: denies: Abdominal Pain, Vomiting Skin: reports: Bite / sting Musculoskeletal: reports: Extremity pain Neurologic: denies: Generalized weakness, Focal weakness, Numbness Endocrine: reports: Polydypsia, Polyuria PD PAST MEDICAL HISTORY - Past Medical History Past Medical History: Yes Cardiovascular: High cholesterol Respiratory: Asthma Neuro: None, Migraines Endocrine/Autoimmune: Type 2 diabetes GI: GERD, Colon polyps, Chronic diarrhea : Incontinence, Chronic bladder infection, Frequency, Other HEENT: Chronic vision loss, Dental implants Psych: Depression, Anxiety, Claustrophobia Musculoskeletal: Osteoarthritis, Fibromyalgia, Chronic back pain Derm: None - Past Surgical History Past Surgical History: Yes General: Cholecystectomy, Colonoscopy, Other Ortho: Rotator cuff repair /HEAD CHEF: section, Tubal ligation - Present Medications Home Medications: Ambulatory Orders Medication Instructions Recorded Confirmed Gabapentin [Neurontin] 1,200 mg PO TID 03/16/15 08/30/20 metFORMIN [Glucophage] 1,000 mg PO BIDWM 03/16/15 08/28/20 Cyclobenzaprine [Flexeril] 10 mg PO TID PRN 04/17/16 08/28/20 DULoxetine [Cymbalta] 90 mg PO DAILY 04/17/16 08/30/20 Hydrocodone/Acetaminophen 1 tab PO TID 04/17/16 08/30/20 [Hydrocodon-Acetaminophen 5-325] Topiramate 50 mg PO BID 04/17/16 08/28/20 Amitriptyline [Elavil] 10 - 20 mg PO DAILY PM 12/01/18 08/28/20 Glipizide 10 mg PO BID 12/01/18 08/28/20 Pioglitazone HCl [Actos] 45 mg PO DAILY 12/01/18 08/28/20 Atorvastatin [Lipitor] 10 mg PO QPM 08/28/20 08/28/20 Baclofen [Lioresal] 10 mg PO BID PRN 08/28/20 08/30/20 Celecoxib [Celebrex] 200 mg PO QPM 08/28/20 08/28/20 Cholecalciferol [Vitamin D3] 25 mcg PO DAILY 08/28/20 08/28/20 Medroxyprogesterone Acetate 10 mg PO DAILY 08/28/20 08/28/20 [Provera] Rizatriptan Benzoate [Maxalt Group Counselor] 10 mg PO ONCE PRN 08/28/20 08/28/20 Acetaminophen [Acetaminophen Extra 1,000 mg PO Q8H PRN #60 tablet 08/30/20 Strength] Ibuprofen [Motrin] 600 mg PO Q6H PRN #60 tab 08/30/20 oxyCODONE [Roxicodone] 2.5 - 5 mg PO Q4H PRN #12 tablet 08/30/20 Clindamycin [Cleocin] 300 mg PO Q6H 7 Days #28 cap 09/14/20 - Allergies Allergies/Adverse Reactions: Allergies Allergy/AdvReac Type Severity Reaction Status Date / Time bee venom protein (honey bee) Allergy Anaphylaxis Verified 09/14/20 17:20 anesthetics Allergy Unknown Uncoded 09/14/20 17:20 - Social History Does the pt smoke?: No Smoking Status: Never smoker Does the pt drink ETOH?: Yes Does the pt have substance abuse?: No - Immunizations Immunizations are current?: Yes - POLST Patient has POLST: No POLST Status: Full Code PD ED PE NORMAL - Vitals Vital signs reviewed: Yes (Normal) - General General: Alert and oriented X 3, No acute distress, Well developed/nourished - HEENT HEENT: Atraumatic, PERRL, EOMI - Respiratory Respiratory: No respiratory distress - Derm Derm: Normal color, Warm and dry, No rash - Extremities Extremities: Other (With a posterior right thigh is a circular erythematous patch approximately 7 cm around that is tender and firm there is no fluctuance there is a central area of some superficial necrosis and with bedside ultrasound there is no evidence of a fluid collection. ) - Neuro Neuro: Alert and oriented X 3, helper maintenance cleaning 2-12 intact, No motor deficit, No sensory deficit, Normal speech Eye Opening: Spontaneous Motor: Obeys Commands Verbal: Oriented GCS Score: 15 - Psych Psych: Normal mood, Normal affect Results - Vitals Vitals: Vital Signs - 24 hr 09/14/20 09/14/20 17:20 19:42 Temperature 36.5 C Heart Rate 100 66 Respiratory 16 20 Rate Blood Pressure 128/81 H O2 Saturation 96 96 Oxygen O2 Source Room air Procedures - Bedside sono Bedside sono by EMP: With use bed side ultrasound the posterior right thigh area is examined there is no evidence of fluid collection in the subcutaneous tissues. PD MEDICAL DECISION MAKING - ED course Complexity details: considered differential, d/w patient ED course: 55-year-old diabetic female has developed another infection on her posterior thigh this does not require I&D. We will place her back onto clindamycin she will follow her sugars closely and she has follow-up with her primary care in 6 days. Departure - Departure Disposition: 01 Home, Self Care Clinical Impression: Abscess Condition: Stable Instructions: ED Staph Infec Abx Tx Only Follow-Up: Mayra Wong PA-C [Primary Care Provider] - Prescriptions: Clindamycin [Cleocin] 300 mg PO Q6H 7 Days #28 cap Comments: Today there is an abscess on your right posterior thigh and this may ripen over the next several days and require incision and drainage. If you develop an area that is fluctuant or has a feeling of give to it come back to the emergency department for incision and drainage. Hydrate adequately with your diabetes as your sugars typically will run high with this infection.
[2020-09-14] MEDS ORDERED: CLINDAMYCIN 150 MG CAPSULE PO STA (20:30)
== END 2020-09-14 20:39 | disposition home or self-care (01) ==
LOC: ED 17:18
DX: L02.415 Cutaneous abscess of right lower limb (principal); E11.9 Type 2 diabetes mellitus without complications; Z79.84 Long term (current) use of oral hypoglycemic drugs
CPT/HCPCS: 99282; 99284; A9270

== ENCOUNTER 2020-09-18 07:54 | Outpatient (CLI) | payer BC ==
[2020-09-18 08:50] LABS: ALBUMIN 3.6 g/dL (3.2-5.5); ALBUMIN/GLOBULIN RATIO 0.9 (1.0-2.2); ALKALINE PHOSPHATASE 54 IU/L (42-121); ALT ALANINE AMINOTRANSFERASE 17 IU/L (10-60); AST ASPARTATE AMINOTRANSFERASE 16 IU/L (10-42); BILIRUBIN,TOTAL 0.2 mg/dL (0.2-1.0); BUN - BLOOD UREA NITROGEN 12 mg/dL (6-20); CALCIUM 8.8 mg/dL (8.5-10.3); CARBON DIOXIDE - CO2 21 mmol/L (21-32); CHLORIDE 102 mmol/L (101-111); CHOL/HDL RATIO 4.8 (<4.4); CHOLESTEROL 169 mg/dL; CREATININE 0.5 mg/dL (0.4-1.0); GFR - MDRD 129 (>89); GLUCOSE 275 mg/dL (70-100); HDL CHOLESTEROL 35 mg/dL; LDL CHOLESTEROL,CALCULATED 111 mg/dL; LDL/HDL RATIO 3.2 (<4.4); POTASSIUM 4.2 mmol/L (3.5-5.0); SODIUM 135 mmol/L (135-145); TOTAL PROTEIN 7.4 g/dL (6.7-8.2); TRIGLYCERIDES 116 mg/dL; VLDL CHOLESTEROL 23 mg/dL
[2020-09-18 12:21] LABS: ESTIMATED AVERAGE GLUCOSE 209 mg/dL (70-100); HEMOGLOBIN A1c% 8.9 % (4.27-6.07)
== END 2020-09-18 07:55 | disposition home or self-care (01) ==
LOC: LAB 07:54
PROVIDERS: ATTEND Physician Assistant Medical
DX: E11.9 Type 2 diabetes mellitus without complications (principal)
CPT/HCPCS: 36415; 80053; 80061; 83036; 83721

== ENCOUNTER 2020-09-20 08:00 | Outpatient (CLI) | payer BC ==
--- OUTSIDE RECORDS SUMMARY | 2020-09-26 01:26 | EXTERNAL MEDICAL SUMMARY RPT | Continuity of Care Document ---
:1965 Demographics Phone Unavailable Preferred Language Unknown Marital Status Unknown Yarsani Affiliation Unknown Race Unknown Ethnic Group Unknown Author Organization [facility] Address [address] [place] [address] Phone Social History date description facility [phone]
== END 2020-09-20 23:59 | disposition home or self-care (01) ==
LOC: LAB.R 08:00
PROVIDERS: ATTEND Physician Assistant Medical
DX: L02.415 Cutaneous abscess of right lower limb (principal)
CPT/HCPCS: 87070; 87181; 87205

== ENCOUNTER 2020-12-06 16:43 | Emergency (ER) | payer BC ==
[2020-12-06] MEDS ORDERED: LIDOCAINE-EPINEPH-TETRACAINE 3 ML SYRINGE TOP STA (16:54)
[2020-12-06] MEDS ORDERED: BUFFERED LIDOCAINE 10 ML SYRINGE SUBQ STA (16:54)
[2020-12-06] MEDS ORDERED: TETANUS/DIPHTHERIA/PERTUSSIS 0.5 ML SYRINGE IM ONE (16:57)
--- NOTE | 2020-12-06 16:59 | ED Physician Documentation ---
PD HPI LOWER EXT INJURY - Stated complaint Stated Complaint: LT FOOT LAC - Chief complaint Chief Complaint: Laceration - History obtained from History obtained from: Patient - Additional information Additional information: 55-year-old woman with unknown tetanus status was at home baking with her grandchildren. She had a stand mixer that was attached via suction to a stool. She lifted up the mixer and it took the stool with it and then it fell on her foot and she has a laceration on the top of the left foot. No other injuries. Review of Systems Constitutional: reports: Reviewed and negative Cardiac: reports: Reviewed and negative Respiratory: reports: Reviewed and negative PD PAST MEDICAL HISTORY - Past Medical History Cardiovascular: High cholesterol Respiratory: Asthma Neuro: None, Migraines Endocrine/Autoimmune: Type 2 diabetes GI: GERD, Colon polyps, Chronic diarrhea : Incontinence, Chronic bladder infection, Frequency, Other HEENT: Chronic vision loss, Dental implants Psych: Depression, Anxiety, Claustrophobia Musculoskeletal: Osteoarthritis, Fibromyalgia, Chronic back pain Derm: None - Past Surgical History Past Surgical History: Yes General: Cholecystectomy, Colonoscopy, Other Ortho: 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, Tubal ligation - Present Medications Home Medications: Ambulatory Orders Medication Instructions Recorded Confirmed Gabapentin [Neurontin] 1,200 mg PO TID 03/16/15 08/30/20 metFORMIN [Glucophage] 1,000 mg PO BIDWM 03/16/15 08/28/20 Cyclobenzaprine [Flexeril] 10 mg PO TID PRN 04/17/16 08/28/20 DULoxetine [Cymbalta] 90 mg PO DAILY 04/17/16 08/30/20 Hydrocodone/Acetaminophen 1 tab PO TID 04/17/16 08/30/20 [Hydrocodon-Acetaminophen 5-325] Topiramate 50 mg PO BID 04/17/16 08/28/20 Amitriptyline [Elavil] 10 - 20 mg PO DAILY PM 12/01/18 08/28/20 Pioglitazone HCl [Actos] 45 mg PO DAILY 12/01/18 08/28/20 glipiZIDE [Glipizide] 10 mg PO BID 12/01/18 08/28/20 Atorvastatin [Lipitor] 10 mg PO QPM 08/28/20 08/28/20 Baclofen [Lioresal] 10 mg PO BID PRN 08/28/20 08/30/20 Celecoxib [Celebrex] 200 mg PO QPM 08/28/20 08/28/20 Cholecalciferol [Vitamin D3] 25 mcg PO DAILY 08/28/20 08/28/20 Medroxyprogesterone Acetate 10 mg PO DAILY 08/28/20 08/28/20 [Provera] Rizatriptan Benzoate [Maxalt Barrel Bung Remover And Dumper] 10 mg PO ONCE PRN 08/28/20 08/28/20 Acetaminophen [Acetaminophen Extra 1,000 mg PO Q8H PRN #60 tablet 08/30/20 Strength] Ibuprofen [Motrin] 600 mg PO Q6H PRN #60 tab 08/30/20 oxyCODONE [Roxicodone] 2.5 - 5 mg PO Q4H PRN #12 tablet 08/30/20 Clindamycin [Cleocin] 300 mg PO Q6H 7 Days #28 cap 09/14/20 - Allergies Allergies/Adverse Reactions: Allergies Allergy/AdvReac Type Severity Reaction Status Date / Time bee venom protein (honey bee) Allergy Anaphylaxis Verified 12/06/20 16:52 anesthetics Allergy Unknown Uncoded 12/06/20 16:52 - Social History Does the pt smoke?: No Smoking Status: Never smoker Does the pt drink ETOH?: Yes Does the pt have substance abuse?: No - Immunizations Immunizations are current?: Yes - POLST Patient has POLST: No POLST Status: Full Code PD ED PE NORMAL - Vitals Vital signs reviewed: Yes - General General: Alert and oriented X 3, No acute distress - Extremities Extremities: Other (There is a slightly less than 1 cm laceration on the medial side of the top of the left foot at the level of the first MTP. Distal capillary refill and extensor tendon strength is normal.) - Neuro Neuro: Alert and oriented X 3, Normal speech - Psych Psych: Normal mood, Normal affect Results - Vitals Vitals: Vital Signs - 24 hr 12/06/20 16:48 Temperature 36.3 C L Heart Rate 100 Respiratory 16 Rate Blood Pressure 132/82 H O2 Saturation 97 Oxygen O2 Source Room air Procedures - Laceration (location) L foot Length in cm: 1 Wound type: Linear Neurovascular status: Sensory intact, Motor intact, Vascular intact Tendon involvement: Tendon intact Anesthesia: LET, Lidocaine 1%, With bicarb Wound preparation: Irrigated copiously NS Skin layer closure: Nylon, Interrupted, Size #-0 - enter number (4-0), Sutures - enter # (2) Other: Patient tolerated well, No complications, Neurovascular intact, Tetanus booster given Departure - Departure Disposition: 01 Home, Self Care Clinical Impression: Laceration Condition: Good Record reviewed to determine appropriate education?: Yes Instructions: ED Laceration All Comments: Come back for any signs of infection which would include: Redness, swelling, drainage, increased pain, or fevers. You can wash it soap and water. Keep it covered and moist with bacitracin ointment which is available over the counter; avoid neosporin. Follow-up with your physician in 10-14 days for suture removal.
[2020-12-06 17:33] VITALS: BP 123/74
== END 2020-12-06 17:33 | disposition home or self-care (01) ==
LOC: ED 16:43
DX: S91.312A Laceration without foreign body, left foot, initial encounter (principal); W20.8XXA Other cause of strike by thrown, projected or falling object, initial encounter; Y93.G3 Activity, cooking and baking; Y92.000 Kitchen of unspecified non-institutional (private) residence as the place of occurrence of the external cause; Z23 Encounter for immunization; E11.9 Type 2 diabetes mellitus without complications; Z79.84 Long term (current) use of oral hypoglycemic drugs
CPT/HCPCS: 12001; 90471; 99282; 99283

== ENCOUNTER 2020-12-16 07:44 | Outpatient (CLI) | payer BC ==
[2020-12-16 08:33] LABS: ALBUMIN 3.8 g/dL (3.2-5.5); ALBUMIN/GLOBULIN RATIO 1.3 (1.0-2.2); ALKALINE PHOSPHATASE 59 IU/L (42-121); ALT ALANINE AMINOTRANSFERASE 15 IU/L (10-60); AST ASPARTATE AMINOTRANSFERASE 13 IU/L (10-42); BILIRUBIN,TOTAL 0.4 mg/dL (0.2-1.0); BUN - BLOOD UREA NITROGEN 8 mg/dL (6-20); CALCIUM 8.4 mg/dL (8.5-10.3); CARBON DIOXIDE - CO2 23 mmol/L (21-32); CHLORIDE 104 mmol/L (101-111); CHOLESTEROL 160 mg/dL; CREATININE 0.7 mg/dL (0.4-1.0); GFR - MDRD 88 (>89); GLUCOSE 361 mg/dL (70-100); HDL CHOLESTEROL 32 mg/dL; LDL CHOLESTEROL,CALCULATED 104 mg/dL; LDL/HDL RATIO 3.3 (<4.4); POTASSIUM 3.9 mmol/L (3.5-5.0); SODIUM 135 mmol/L (135-145); TOTAL PROTEIN 6.7 g/dL (6.7-8.2); TRIGLYCERIDES 119 mg/dL; VLDL CHOLESTEROL 24 mg/dL
[2020-12-16 09:57] LABS: ESTIMATED AVERAGE GLUCOSE 258 mg/dL (70-100); HEMOGLOBIN A1c% 10.6 % (4.27-6.07)
== END 2020-12-16 07:45 | disposition home or self-care (01) ==
LOC: LAB 07:44
PROVIDERS: ATTEND Physician Assistant Medical
DX: E11.9 Type 2 diabetes mellitus without complications (principal); L02.91 Cutaneous abscess, unspecified
CPT/HCPCS: 36415; 80053; 80061; 83036; 83721

== ENCOUNTER 2021-03-11 11:57 | Outpatient (CLI) | payer BC | END 2021-03-11 11:58 | disposition critical access hospital (66) | LOC: EMS 11:57 | DX: U07.1 COVID-19 (principal) | CPT/HCPCS: A0425; A0427 ==

== ENCOUNTER 2021-03-11 12:04 | Emergency (ER) | payer BC ==
[2021-03-11] MEDS ORDERED: LORazepam 2 MG/ML VIAL ONE ×2 (12:22→12:32)
[2021-03-11] MEDS ORDERED: LIDOCAINE TOPICAL 4% 50 ML BOTTLE MM STA (12:42)
[2021-03-11] MEDS ORDERED: SUCCINYLCHOLINE 200 MG/10 ML VIAL ONE (12:42)
[2021-03-11] MEDS ORDERED: KETAMINE 500 MG/10 ML VIAL IVP STA (12:43)
[2021-03-11] MEDS ORDERED: ROCURONIUM 50 MG/5 ML VIAL IVP STA ×3 (12:44→15:41)
[2021-03-11] MEDS ORDERED: PROPOFOL 500 MG/50 ML 500 MG/50 ML VIAL IV STA ×5 (12:44→18:28)
[2021-03-11] MEDS ORDERED: ROCURONIUM 50 MG/5 ML VIAL ONE (12:45)
[2021-03-11] MEDS ORDERED: KETAMINE 500 MG/10 ML VIAL ONE (12:49)
[2021-03-11 13:13] LABS: BASOPHILS % (AUTO) 0.2 %; HCT - HEMATOCRIT 49.3 % (37.0-47.0); HGB - HEMOGLOBIN 16.1 g/dL (12.0-16.0); LYMPHOCYTES # (AUTO) 0.6 10^3/uL (1.5-3.5); LYMPHOCYTES % (AUTO) 7.1 %; MEAN CORPUSCULAR HEMOGLOBIN 27.6 pg (27.0-31.0); MEAN CORPUSCULAR HGB CONC 32.7 g/dL (32.0-36.0); MEAN CORPUSCULAR VOLUME 84.4 fL (81.0-99.0); MONOCYTES # (AUTO) 0.5 10^3/uL (0.0-1.0); NEUTROPHILS # (AUTO) 7.6 10^3/uL (1.5-6.6); PLT - PLATELET COUNT 292 10^3/uL (130-450); RED BLOOD COUNT 5.84 10^6/uL (4.20-5.40); WHITE BLOOD COUNT 8.8 x10^3/uL (4.8-10.8)
[2021-03-11 13:24] LABS: ALBUMIN 3.5 g/dL (3.2-5.5); ALBUMIN/GLOBULIN RATIO 0.7 (1.0-2.2); BILIRUBIN,TOTAL 0.8 mg/dL (0.2-1.0); CALCIUM 8.6 mg/dL (8.5-10.3); CREATININE 0.9 mg/dL (0.4-1.0); POTASSIUM 3.9 mmol/L (3.5-5.0); TOTAL PROTEIN 8.6 g/dL (6.7-8.2)
[2021-03-11] MEDS ORDERED: fentaNYL 100 MCG/2 ML VIAL IVP STA (13:53)
--- NOTE | 2021-03-11 14:11 | XRAY Report ---
PROCEDURE: Chest for Line Placement INDICATIONS: s/p intubation TECHNIQUE: One view of the chest was acquired. COMPARISON: 11/30/2018 FINDINGS: Surgical changes and devices: Patient is intubated, ET tube tip is approximately 4.5 cm above the car nichole.. Lungs and pleura: No pleural effusions or pneumothorax. There is pulmonary vascular congestion. Ill- defined airspace opacities are noted in bilateral mid to lower lung knott. Trace left pleural effusi on is likely present. No gross pneumothorax. Mediastinum: Mediastinal contours appear normal. Heart size is enlarged. Bones and chest wall: No suspicious bony lesions. Overlying soft tissues appear unremarkable. IMPRESSION: ET tube tip is approximately 4.5 cm above the kirill. Pulmonary vascular congestion is suggestion of and infiltrates in bilateral mid to lower lung field. Trace left pleural effusion. No gross pneumothorax. Reviewed by: George Keith MD on 03/11/2021 2:09 PM PDT Approved by: George Keith MD on 03/11/2021 2:09 PM PDT Station ID: [id number]
[2021-03-11] MEDS ORDERED: ACETAMINOPHEN 650 MG SUPP PR STA (14:18)
[2021-03-11 14:57] LABS: ABG PCO2 40 mmHg (34-45); ABG PH 7.23 (7.35-7.45)
[2021-03-11 14:58] LABS: ABG BASE EXCESS -10.7 mmol/L (-2.0-3.0); ABG HCO3 16.3 mmol/L (22.0-26.0); ABG MODE OF VENTILATION ASSIST/CONTROL; ABG RESPIRATORY RATE 22 b/min; ABG TCO2 17.5 MMOL/L (21.0-29.0); ALLEN TEST POSITIVE
[2021-03-11 15:01] LABS: ABG OXYGEN SATURATION 76 % (94-98); ABG PO2 45 mmHg (80-100)
[2021-03-11 15:25] LABS: B. PARAPERTUSSIS- RESP PCR PAN NOT DETECTED; B. PERTUSSIS- RESP PCR PANEL NOT DETECTED; C. PNEUMONIAE- RESP PCR PANEL NOT DETECTED; CORONAVIRUS 229E-RESP PCR NOT DETECTED; CORONAVIRUS HKU1-RESP PCR NOT DETECTED; CORONAVIRUS NL63-RESP PCR NOT DETECTED; CORONAVIRUS OC43-RESP PCR NOT DETECTED; HUMAN METAPNEUMOVIRUS NOT DETECTED; INFLUENZA A- RESP PCR PANEL NOT DETECTED; INFLUENZA B - RESP PCR PANEL NOT DETECTED; M. PNEUMONIAE- RESP PCR PANEL NOT DETECTED; PARAINFLUENZA VIRUS 1 NOT DETECTED; PARAINFLUENZA VIRUS 2 NOT DETECTED; PARAINFLUENZA VIRUS 3 NOT DETECTED; PARAINFLUENZA VIRUS 4 NOT DETECTED; RHINOVIRUS/ENTEROVIRUS NOT DETECTED; RSV- RESP PCR PANEL NOT DETECTED
[2021-03-11] MEDS ORDERED: LORazepam 2 MG/ML VIAL IVP STA ×2 (15:25)
[2021-03-11 15:27] LABS: SARS-CoV-2 -RESP PCR PANEL DETECTED
[2021-03-11] MEDS ORDERED: PROPOFOL 1000 MG/100 ML 1,000 MG/100 ML BOTTLE IV ONE ×5 (15:57→23:57)
[2021-03-11] MEDS ORDERED: ROCURONIUM 500 MG in SODIUM CHLORIDE 0.9% 100ML 50 ML IV STA (16:00)
--- NOTE | 2021-03-11 16:33 | ED Physician Documentation ---
History of Present Illness - Stated complaint Stated Complaint: C+ SOA - Chief complaint Chief Complaint: Resp - History obtained from History obtained from: EMS - Additonal information Additional information: Patient is brought to the emergency department by EMS for chief complaint of severe shortness of breath. Patient was diagnosed with Covid about a week ago and has been feeling progressively worse but is feeling extremely bad today. They state that when they arrived, patient was saturating about 70% on room air with audible rales grossly. On 100% high flow O2 in route, patient has been o nly in the mid 70s saturation mason. She is not vaccinated. She has a history of asthma. She was a smoker until 2007. Patient is not able to offer any information, secondary to being in severe respiratory distress. Review of Systems Unable to obtain: Other (Severe respiratory distress) PD PAST MEDICAL HISTORY - Past Medical History Cardiovascular: High cholesterol Respiratory: Asthma Neuro: None, Migraines Endocrine/Autoimmune: Type 2 diabetes GI: GERD, Colon polyps, Chronic diarrhea : Incontinence, Chronic bladder infection, Frequency, Other HEENT: Chronic vision loss, Dental implants Psych: Depression, Anxiety, Claustrophobia Musculoskeletal: Osteoarthritis, Fibromyalgia, Chronic back pain Derm: None - Past Surgical History Past Surgical History: Yes General: Cholecystectomy, Colonoscopy, Other Ortho: Rotator cuff repair /CHEESE BLENDER: section, Tubal ligation - Present Medications Home Medications: Ambulatory Orders Medication Instructions Recorded Confirmed Gabapentin [Neurontin] 1,200 mg PO TID 03/16/15 08/30/20 metFORMIN [Glucophage] 1,000 mg PO BIDWM 03/16/15 08/28/20 Cyclobenzaprine [Flexeril] 10 mg PO TID PRN 04/17/16 08/28/20 DULoxetine [Cymbalta] 90 mg PO DAILY 04/17/16 08/30/20 Hydrocodone/Acetaminophen 1 tab PO TID 04/17/16 08/30/20 [Hydrocodon-Acetaminophen 5-325] Topiramate 50 mg PO BID 04/17/16 08/28/20 Amitriptyline [Elavil] 10 - 20 mg PO DAILY PM 12/01/18 08/28/20 Pioglitazone HCl [Actos] 45 mg PO DAILY 12/01/18 08/28/20 glipiZIDE [Glipizide] 10 mg PO BID 12/01/18 08/28/20 Atorvastatin [Lipitor] 10 mg PO QPM 08/28/20 08/28/20 Baclofen [Lioresal] 10 mg PO BID PRN 08/28/20 08/30/20 Celecoxib [Celebrex] 200 mg PO QPM 08/28/20 08/28/20 Cholecalciferol [Vitamin D3] 25 mcg PO DAILY 08/28/20 08/28/20 Medroxyprogesterone Acetate 10 mg PO DAILY 08/28/20 08/28/20 [Provera] Rizatriptan Benzoate [Maxalt [employer]itness Studies Teacher] 10 mg PO ONCE PRN 08/28/20 08/28/20 Acetaminophen [Acetaminophen Extra 1,000 mg PO Q8H PRN #60 tablet 08/30/20 Strength] Ibuprofen [Motrin] 600 mg PO Q6H PRN #60 tab 08/30/20 oxyCODONE [Roxicodone] 2.5 - 5 mg PO Q4H PRN #12 tablet 08/30/20 Clindamycin [Cleocin] 300 mg PO Q6H 7 Days #28 cap 09/14/20 - Allergies Allergies/Adverse Reactions: Allergies Allergy/AdvReac Type Severity Reaction Status Date / Time bee venom protein (honey bee) Allergy Anaphylaxis Verified 03/11/21 14:24 anesthetics Allergy Unknown Uncoded 03/11/21 14:24 - Social History Does the pt smoke?: No Smoking Status: Former smoker Does the pt drink ETOH?: Yes Does the pt have substance abuse?: No - Immunizations Immunizations are current?: Yes - POLST Patient has POLST: No POLST Status: Full Code PD ED PE NORMAL - Vitals Vital signs reviewed: Yes - General General: Other (Patient is awake, but minimally able to speak, secondary to severe anxiety and respiratory distress.) - HEENT HEENT: Atraumatic, PERRL, EOMI, Moist mucous membranes - Neck Neck: Supple, no meningeal sign - Cardiac Cardiac: No murmur, Other (Tachycardic rate regular rhythm no murmurs.) - Respiratory Respiratory: Other (Rales throughout bilateral lung knott. Severely tachypneic, but with good air movement. Patient is occasionally able to speak 2 words at a time.) - Abdomen Abdomen: Soft, Non tender, Non distended - Derm Derm: Warm and dry, Other (Dusky skin coloring.) - Extremities Extremities: No deformity, No edema - Neuro Neuro: Other (Patient is awake and responds to voice. Moving all 4 extremities grossly.) - Psych Psych: Other (Severely anxious) Results - Vitals Vitals: Vital Signs - 24 hr 03/11/21 03/11/21 03/11/21 12:04 12:15 12:20 Temperature 39.7 C H Heart Rate 151 H 154 H 151 H Respiratory 37 H 37 H Rate Blood Pressure 158/94 H O2 Saturation 80 L 92 03/11/21 03/11/21 03/11/21 12:25 12:29 13:01 Temperature Heart Rate 154 H 152 H 155 H Respiratory 60 H 41 H 29 H Rate Blood Pressure 164/109 H 153/68 H O2 Saturation 88 L 91 L 03/11/21 03/11/21 03/11/21 13:16 13:20 13:30 Temperature Heart Rate 141 H 143 H 142 H Respiratory 22 22 22 Rate Blood Pressure 160/104 H 143/89 H O2 Saturation 76 L 91 L 80 L 03/11/21 03/11/21 03/11/21 13:36 13:52 13:55 Temperature Heart Rate 147 H 149 H 150 H Respiratory 22 27 H 22 Rate Blood Pressure 164/87 H 138/87 H 139/83 H O2 Saturation 77 L 74 L 75 L 03/11/21 03/11/21 03/11/21 14:00 14:11 14:36 Temperature 39.7 C H Heart Rate 147 H 150 H 149 H Respiratory 22 22 22 Rate Blood Pressure 130/77 156/88 H 159/94 H O2 Saturation 74 L 79 L 77 L 03/11/21 03/11/21 03/11/21 15:10 15:14 15:18 Temperature 39.3 C H Heart Rate 146 H 139 H 137 H Respiratory 22 21 21 Rate Blood Pressure 121/78 103/72 107/74 O2 Saturation 76 L 77 L 78 L 03/11/21 03/11/21 03/11/21 15:30 15:38 15:54 Temperature 39.1 C H 39.1 C H Heart Rate 138 H 137 H 136 H Respiratory 29 H 18 Rate Blood Pressure 123/67 111/66 O2 Saturation 78 L 79 L 03/11/21 03/11/21 03/11/21 16:01 16:03 16:18 Temperature 39 C H 38.9 C H Heart Rate 136 H 136 H Respiratory 18 18 Rate Blood Pressure 118/73 118/71 O2 Saturation 79 L 80 L 80 L 03/11/21 03/11/21 03/11/21 16:24 16:40 16:45 Temperature 38.8 C H Heart Rate 139 H 136 H 135 H Respiratory 18 18 18 Rate Blood Pressure 141/83 H 124/71 114/71 O2 Saturation 81 L 79 L 79 L 03/11/21 03/11/21 03/11/21 16:55 17:00 17:15 Temperature 38.8 C H 38.7 C H Heart Rate 133 H 133 H 133 H Respiratory 18 18 20 Rate Blood Pressure 111/68 110/68 108/68 O2 Saturation 78 L 77 L 77 L 03/11/21 03/11/21 03/11/21 17:43 18:14 18:32 Temperature 38.6 C H 38.5 C H 38.5 C H Heart Rate 132 H 127 H 123 H Respiratory 20 20 20 Rate Blood Pressure 107/66 100/64 102/58 L O2 Saturation 75 L 75 L 75 L 03/11/21 03/11/21 03/11/21 18:45 19:00 19:15 Temperature 38.4 C H 38.3 C H Heart Rate 121 H 121 H 120 H Respiratory 20 20 20 Rate Blood Pressure 105/60 108/61 110/61 O2 Saturation 76 L 76 L 75 L 03/11/21 03/11/21 03/11/21 19:30 19:45 20:00 Temperature 38.5 C H Heart Rate 121 H 122 H 123 H Respiratory 20 20 24 Rate Blood Pressure 106/64 105/62 97/60 O2 Saturation 74 L 69 L 66 L 03/11/21 03/11/21 03/11/21 20:06 20:09 20:11 Temperature 38.6 C H Heart Rate 124 H 122 H 124 H Respiratory 24 24 Rate Blood Pressure 98/63 100/66 O2 Saturation 67 L 69 L 03/11/21 03/11/21 03/11/21 20:15 20:30 20:45 Temperature 38.9 C H 38.9 C H Heart Rate 124 H 126 H 126 H Respiratory 24 24 24 Rate Blood Pressure 95/65 95/66 102/71 O2 Saturation 70 L 70 L 70 L 03/11/21 03/11/21 03/11/21 21:13 21:15 21:30 Temperature 39.2 C H 39.2 C H Heart Rate 126 H 126 H 123 H Respiratory 24 24 28 H Rate Blood Pressure 101/68 104/66 110/64 O2 Saturation 71 L 71 L 70 L 03/11/21 03/11/21 03/11/21 21:45 22:00 22:13 Temperature 39 C H 38.7 C H 38.6 C H Heart Rate 124 H 118 H 118 H Respiratory 28 H 28 H 28 H Rate Blood Pressure 107/68 90/59 L 103/54 L O2 Saturation 71 L 68 L 67 L 03/11/21 03/11/21 03/11/21 22:15 22:23 22:30 Temperature 38.6 C H Heart Rate 118 H 118 H 118 H Respiratory 28 H 28 H 28 H Rate Blood Pressure 95/56 L 95/54 L 88/58 L O2 Saturation 67 L 66 L 65 L 03/11/21 03/11/21 03/11/21 22:42 22:45 23:00 Temperature 38.5 C H 38.5 C H 38.4 C H Heart Rate 118 H 118 H 119 H Respiratory 28 H 28 H 28 H Rate Blood Pressure 89/59 L 87/57 L 87/60 L O2 Saturation 64 L 64 L 64 L 03/11/21 03/11/21 03/11/21 23:15 23:30 23:45 Temperature 38.6 C H 38.7 C H 38.7 C H Heart Rate 118 H 120 H 121 H Respiratory 28 H 28 H 28 H Rate Blood Pressure 76/52 L 81/54 L 80/62 L O2 Saturation 59 L 61 L 62 L 03/12/21 03/12/21 03/12/21 00:00 00:15 00:30 Temperature 38.8 C H 38.9 C H Heart Rate 123 H 123 H 125 H Respiratory 28 H 20 28 H Rate Blood Pressure 84/62 L 87/59 L 91/54 L O2 Saturation 63 L 64 L 65 L 03/12/21 03/12/21 03/12/21 00:46 01:15 01:30 Temperature 38.9 C H 38.9 C H 38.9 C H Heart Rate 124 H 124 H 124 H Respiratory 28 H 28 H 28 H Rate Blood Pressure 86/57 L 87/60 L 82/55 L O2 Saturation 64 L 65 L 65 L 09/21/21 09/21/21 09/21/21 01:45 02:00 02:15 Temperature 38.8 C H 38.8 C H 38.8 C H Heart Rate 123 H 123 H 124 H Respiratory 28 H 28 H 28 H Rate Blood Pressure 78/57 L 100/65 98/63 O2 Saturation 65 L 64 L 53 L 03/12/21 03/12/21 03/12/21 02:30 02:45 03:00 Temperature 38.8 C H Heart Rate 123 H 123 H 123 H Respiratory 28 H 28 H Rate Blood Pressure 99/55 L 91/66 88/66 L O2 Saturation 51 L 48 L 45 L 03/12/21 03/12/21 03/12/21 03:15 03:30 03:45 Temperature 38.8 C H 38.8 C H 38.8 C H Heart Rate 123 H 122 H 122 H Respiratory 28 H 28 H 28 H Rate Blood Pressure 89/53 L 95/64 96/66 O2 Saturation 49 L 51 L 63 L 03/12/21 03/12/21 03/12/21 04:00 04:15 04:30 Temperature 38.8 C H 38.8 C H 38.7 C H Heart Rate 120 H 122 H 121 H Respiratory 28 H 28 H 28 H Rate Blood Pressure 88/65 L 87/65 L 97/64 O2 Saturation 64 L 94 65 L 03/12/21 03/12/21 03/12/21 04:45 05:00 05:15 Temperature 38.6 C H 38.6 C H 38.6 C H Heart Rate 121 H 121 H 122 H Respiratory 28 H 28 H 28 H Rate Blood Pressure 91/68 86/69 L 98/65 O2 Saturation 67 L 68 L 69 L 03/12/21 03/12/21 03/12/21 05:30 05:45 06:00 Temperature 38.6 C H 38.6 C H 38.6 C H Heart Rate 121 H 122 H 122 H Respiratory 28 H 28 H 28 H Rate Blood Pressure 86/67 L 94/65 101/69 O2 Saturation 70 L 70 L 71 L 03/12/21 03/12/21 03/12/21 06:15 06:30 06:45 Temperature 38.6 C H 38.6 C H 38.7 C H Heart Rate 122 H 122 H 122 H Respiratory 28 H 28 H 28 H Rate Blood Pressure 94/63 93/65 87/69 L O2 Saturation 71 L 71 L 71 L Oxygen O2 Source Mechanical ventilator - Labs Labs: Laboratory Tests 03/11/21 03/11/21 03/11/21 12:06 12:06 12:06 WBC 8.8 RBC 5.84 H Hgb 16.1 H Hct 49.3 H MCV 84.4 MCH 27.6 MCHC 32.7 RDW 13.0 Plt Count 292 MPV 10.0 Neut # (Auto) 7.6 H Lymph # (Auto) 0.6 L Letcher # (Auto) 0.5 Eos # (Auto) 0.0 Baso # (Auto) 0.0 Absolute Nucleated RBC 0.00 Nucleated RBC % 0.0 Bld Gas Analysis Time Sample Site ABG pH ABG pCO2 ABG pO2 ABG HCO3 ABG Total CO2 ABG O2 Saturation ABG Base Excess Olivier Test Respiration Rate O2 Delivery Device Vent Mode FiO2 Tidal Volume PEEP Sodium 130 L Potassium 3.9 Chloride 89 L Carbon Dioxide 17 L Anion Gap 24.0 H BUN 8 Creatinine 0.9 Estimated GFR (MDRD) 65 L Glucose 453 H Lactic Acid 5.0 H* Calcium 8.6 Total Bilirubin 0.8 AST 34 ALT 24 Alkaline Phosphatase 42 Total Protein 8.6 H Albumin 3.5 Globulin 5.1 H Albumin/Globulin Ratio 0.7 L Lipase 25 Nasal Adenovirus (PCR) Nasal B. parapertussis DNA (PCR) Nasal Coronavir 229E PCR Nasal Coronavir HKU1 PCR Nasal Coronavir NL63 PCR Nasal Coronavir OC43 PCR Nasal Enterovir/Rhinovir PCR Nasal Influenza B PCR Nasal Influenza A PCR Nasal Parainfluen 1 PCR Nasal Parainfluen 2 PCR Nasal Parainfluen 3 PCR Nasal Parainfluen 4 PCR Nasal RSV (PCR) Nasal B.pertussis DNA PCR Nasal C.pneumoniae (PCR) Tyson Human Metapneumo PCR Nasal M.pneumoniae (PCR) Nasal SARS-CoV-2 (PCR) 03/11/21 03/11/21 03/11/21 13:47 14:48 16:53 WBC RBC Hgb Hct MCV MCH MCHC RDW Plt Count MPV Neut # (Auto) Lymph # (Auto) Letcher # (Auto) Eos # (Auto) Baso # (Auto) Absolute Nucleated RBC Nucleated RBC % Bld Gas Analysis Time 1454 1700 Sample Site RIGHT RADIAL LEFT RADIAL ABG pH 7.23 L 7.15 L* ABG pCO2 40 53 H ABG pO2 45 L* 50 L* ABG HCO3 16.3 L 18.0 L ABG Total CO2 17.5 L 19.6 L ABG O2 Saturation 76 L* 78 L* ABG Base Excess -10.7 L -11.2 L Olivier Test POSITIVE POSITIVE Respiration Rate 22 18 O2 Delivery Device VENTILATOR VENTILATOR Vent Mode ASSIST/CONTROL ASSIST/CONTROL FiO2 100.00 100.00 Tidal Volume 470 440 PEEP 8 12 Sodium Potassium Chloride Carbon Dioxide Anion Gap BUN Creatinine Estimated GFR (MDRD) Glucose Lactic Acid Calcium Total Bilirubin AST ALT Alkaline Phosphatase Total Protein Albumin Globulin Albumin/Globulin Ratio Lipase Nasal Adenovirus (PCR) NOT DETECTED Nasal B. parapertussis DNA (PCR) NOT DETECTED Nasal Coronavir 229E PCR NOT DETECTED Nasal Coronavir HKU1 PCR NOT DETECTED Nasal Coronavir NL63 PCR NOT DETECTED Nasal Coronavir OC43 PCR NOT DETECTED Nasal Enterovir/Rhinovir PCR NOT DETECTED Nasal Influenza B PCR NOT DETECTED Nasal Influenza A PCR NOT DETECTED Nasal Parainfluen 1 PCR NOT DETECTED Nasal Parainfluen 2 PCR NOT DETECTED Nasal Parainfluen 3 PCR NOT DETECTED Nasal Parainfluen 4 PCR NOT DETECTED Nasal RSV (PCR) NOT DETECTED Nasal B.pertussis DNA PCR NOT DETECTED Nasal C.pneumoniae (PCR) NOT DETECTED Tyson Human Metapneumo PCR NOT DETECTED Nasal M.pneumoniae (PCR) NOT DETECTED Nasal SARS-CoV-2 (PCR) DETECTED A 03/11/21 21:05 WBC RBC Hgb Hct MCV MCH MCHC RDW Plt Count MPV Neut # (Auto) Lymph # (Auto) Letcher # (Auto) Eos # (Auto) Baso # (Auto) Absolute Nucleated RBC Nucleated RBC % Bld Gas Analysis Time 2113 Sample Site LEFT RADIAL ABG pH 7.21 L ABG pCO2 47 H ABG pO2 37 L* ABG HCO3 18.2 L ABG Total CO2 19.7 L ABG O2 Saturation 68 L* ABG Base Excess -9.7 L Olivier Test POSITIVE Respiration Rate 24 O2 Delivery Device VENTILATOR Vent Mode ASSIST/CONTROL FiO2 100.00 Tidal Volume 580 PEEP 16 Sodium Potassium Chloride Carbon Dioxide Anion Gap BUN Creatinine Estimated GFR (MDRD) Glucose Lactic Acid Calcium Total Bilirubin AST ALT Alkaline Phosphatase Total Protein Albumin Globulin Albumin/Globulin Ratio Lipase Nasal Adenovirus (PCR) Nasal B. parapertussis DNA (PCR) Nasal Coronavir 229E PCR Nasal Coronavir HKU1 PCR Nasal Coronavir NL63 PCR Nasal Coronavir OC43 PCR Nasal Enterovir/Rhinovir PCR Nasal Influenza B PCR Nasal Influenza A PCR Nasal Parainfluen 1 PCR Nasal Parainfluen 2 PCR Nasal Parainfluen 3 PCR Nasal Parainfluen 4 PCR Nasal RSV (PCR) Nasal B.pertussis DNA PCR Nasal C.pneumoniae (PCR) Tyson Human Metapneumo PCR Nasal M.pneumoniae (PCR) Nasal SARS-CoV-2 (PCR) - Rads (name of study) CXR Radiology: Final report received, EMP read indepedently, See rad report (ETT 4.5 cm above kirill; patchy bilateral infiltrates/multifocal pneumonia.) Procedures - Intubation Provider: Emergency physician Medications: Ketamine, Rocuronium, Lidocaine Blade: Glidescope Tube: Size-enter number (7.5), Cuffed, Marked at teeth-enter cm (22) Route: Oral Confirmation: Direct visualization, Bilateral breath sounds, No abdominal breath sound, End tidal CO2, Pulse ox, Chest xray Complications: No compications PD MEDICAL DECISION MAKING - ED course Complexity details: reviewed old records, reviewed results, re-evaluated patient, considered differential, d/w patient, d/w budget consultant ED course: The patient was evaluated immediately upon arrival in the emergency department by myself. She was in significant respiratory distress, and I did immediately have the patient placed on BiPAP. She was very anxious and was initially having difficulty complying with the BiPAP. She was given a total of 2 mg of Ativan IV which did help her anxiety level and she was able to wear the mask consistently after this. Her oxygen saturation initially improved to between 88 and 92% on 100% FiO2. However, the patient's respiratory rate was in the 50s on arrival and remained on about this level despite improved oxygenation on the BiPAP. After about 30 minutes, she did begin to become diaphoretic and exhibit worsening mental status. Her saturations had dropped into the low 80s. At this point, I felt the patient should be intubated. This was done as above. Patient's oxygen saturations were improved with bagging, but on the vent, prove difficult to keep the patient adequately sedated and to oxygenate her. She ultimately ended up on propofol 70 mics per KG per minute as well as a rocuronium drip. She had also received several spot doses of rocuronium prior, as well as a dose of fentanyl. The patient was kept on an FiO2 of 100% during her entire stay in the ED. She was tried on various vent settings include according to ARDS protocol, including a tidal volume as high as 585, PEEP up to 12 with limitation being plateau pressures which were elevated at nearly 40, and a ventilation rate started at 18 and titrating up to 24. Patient's oxygen saturations continued to range between 75 and 80% on various settings. Her initial ABG showed acidosis with a pH of 7.23 PCO2 of 39.7 and a PO2 of 44.6. Oxygen saturation at that point was 75.5. Repeat ABG after initial adjustments showed decrease in pH of 7.15, increasing PCO2 of 52.5, and PO2 mildly improved to 49.8. Oxygen saturations also improved to 77.8, though this clearly was not ideal. Patient's lactic acid level was found to be 5. Her white count was normal. LFT is and renal function were not significantly impaired. She had received 2 L of 0.9 normal saline at the time of this dictation. I spoke with Dr. Garcia, machinist class b at [facility], and he recommended Zosyn to treat potential bacterial infection but otherwise, did not have any further re commendations. Was found that [facility] however may not have the patient at room until tomorrow and that they also did not have ECMO capability. As such, the idea of transfer to another facility is being revisited. Physician liaison [facility] is assisting in this process. At this point in time the patient is signed out to Dr. Duggan pending final acceptance and transfer to a higher level of care. We have discussed proning here in the emergency department, but this is not felt to be workable with her current resources. - Critical Care Time(min): 260 Comments: Critical care time was necessary, secondary to acute life threatening condition with high probability of imminent decline and , as a result of covid pneumonia, sepsis, and respiratory failure. Time Includes: Direct patient care, Review records, Reassess patient, Document care, Coordinate care, Medical consult, Family consult for tx may, See progress note Data interpretation: Labs, Pulse ox, ABG, CXR, Cardiac output, See progress note Procedures included in critical care time: Ventilator mgmt Procedures excluded from critical care time: Intubation Departure - Departure Clinical Impression: COVID-19, ARDS (adult respiratory distress syndrome), Fever, Sepsis, Hypoxia Respiratory failure Qualifiers: Chronicity: acute Respiratory failure complication: hypoxia Qualified Code(s): J96.01 - Acute respiratory failure with hypoxia Condition: Poor
[2021-03-11 17:01] LABS: ABG BASE EXCESS -11.2 mmol/L (-2.0-3.0); ABG PCO2 53 mmHg (34-45); ABG TCO2 19.6 MMOL/L (21.0-29.0)
[2021-03-11 17:02] LABS: ALLEN TEST POSITIVE
[2021-03-11] MEDS ORDERED: DEXAMETHASONE 10 MG/ML VIAL IVP STA (17:02)
[2021-03-11] MEDS ORDERED: PIPERACILLIN/TAZOBACTAM 4.5 GM in SODIUM CHLORIDE 0.9% MINIBAG 100 ML IV STA (17:02)
[2021-03-11 17:03] LABS: ABG MODE OF VENTILATION ASSIST/CONTROL; ABG RESPIRATORY RATE 18 b/min
[2021-03-11 17:05] LABS: ABG OXYGEN SATURATION 78 % (94-98); ABG PH 7.15 (7.35-7.45); ABG PO2 50 mmHg (80-100)
[2021-03-11] MEDS ORDERED: SODIUM CHLORIDE 0.9% 1,000 ML IV STA ×4 (17:30→20:37)
[2021-03-11] MEDS ORDERED: HYDROmorphone 1 MG/ML CARPUJECT IVP STA (17:52)
[2021-03-11] MEDS: PROPOFOL 1000 MG/100 ML 1,000 MG/100 ML BOTTLE IV SCH (18:09)
[2021-03-11] MEDS ORDERED: IPRATROPIUM/ALBUTEROL 3 ML NEB INH STA (20:37)
[2021-03-11] MEDS ORDERED: ACETAMINOPHEN 1,000 MG/100 ML 100 ML IV ONE (20:48)
[2021-03-11] MEDS ORDERED: FUROSEMIDE 40 MG/4 ML VIAL IVP STA (21:01)
[2021-03-11 21:14] LABS: ABG BASE EXCESS -9.7 mmol/L (-2.0-3.0); ABG HCO3 18.2 mmol/L (22.0-26.0); ABG PCO2 47 mmHg (34-45); ABG PH 7.21 (7.35-7.45); ABG TCO2 19.7 MMOL/L (21.0-29.0)
[2021-03-11 21:15] LABS: ABG MODE OF VENTILATION ASSIST/CONTROL; ABG RESPIRATORY RATE 24 b/min; ALLEN TEST POSITIVE
[2021-03-11 21:18] LABS: ABG OXYGEN SATURATION 68 % (94-98); ABG PO2 37 mmHg (80-100)
--- NOTE | 2021-03-11 22:03 | ED Physician Documentation ---
ED Addendum - Addendum Addendum: Patient with severe Covid pneumonia. Respiratory failure. Morbid obesity. Patient signed out to me by Dr. Reilly. Awaiting transfer to the [facility]. Patient has continued to deteriorate. I spoke with Dr. Fonseca, MICU attending at the [facility]. We went through several rounds of adjusting ventilator settings. Her O2 sat is still failing to improve. He does not feel that she is stable enough for transfer and will likely during transport. 2139 - I contacted our hospitalist, Dr. Nunes, who refuses admission stating that the patient is too sick to be admitted here. I attempted to explain to her that the patient was too unstable to be transferred and would likely not survive transport to another hospital. She referred me to her doping supervisor, Dr. Valenzuela who also refuses admission and states that the patient should be extubated in the emergency department and allowed to . Requested Dr. Nunes come and write a consult note on this patient. Pointed out that they can use tele icu medicine in the ICU to help manage her, they still refuse the patient. 2200 -Attempting to call the back to see if they will accept transfer. 2240 - Patient continues to deteriorate in the emergency department. Still waiting to hear back from [facility] in a call the patient's , Adair, informed him of the patient's grim prognosis at this point. He states she would not want to live on a machine. He states that if CPR would be futile, she would not want that either. 2300 - patient signed out to Dr. Ramirez for further care. Still no call back from . Patient continues to deteriorate in the ED. Departure - Departure Clinical Impression: COVID-19, ARDS (adult respiratory distress syndrome), Hypoxia Respiratory failure Qualifiers: Chronicity: acute Respiratory failure complication: hypoxia Qualified Code(s): J96.01 - Acute respiratory failure with hypoxia Fever Qualifiers: Fever type: unspecified Qualified Code(s): R50.9 - Fever, unspecified Sepsis Qualifiers: Sepsis type: sepsis due to unspecified organism Sepsis acute organ dysfunction status: with acute organ dysfunction Severe sepsis acute organ dysfunction type: acute respiratory failure Acute respiratory failure type: with hypoxia Severe sepsis shock status: unspecified Qualified Code(s): A41.9 - Sepsis, unspecified organism Condition: Poor
--- NOTE | 2021-03-11 22:30 | PROVIDER PROGRESS NOTE ---
Head Bone Grinder Note - Head Bone Grinder Note Head Bone Grinder Note: Non-billable services/coordination of the care note Evaluation was requested by the ER physician Dr. Mirza Duggan regarding admission of this critically ill patient to [facility] Ms. Jewels Soriano is an unfortunate 55-year-old white female with past medical hi story of BMI of 43, type 2 diabetes, depression and chronic pain who presented to the ER around noon on March 11 with respiratory failure. She was diagnosed with severe Covid pneumonia and ARDS. She was appropriately managed during the daytime by the ER physician, however ventilation remained challenging as oxygen saturation could not appropriately go up to an acceptable level. The care was coordinated with the [facility] and it was felt that the patient was not stable enough for transfer. Thereby, admission to [facility] ICU was requested by the ER MD. Medical decision making and recommendations: [facility] is a critical access hospital with no tacking stitch remover available; we have neither the resources nor the talent to manage complex cases with long-term critical care needs, in particular low tidal volume/high PEEP ventilation with proning, multiple drips and the need to adjust ventilator settings often with continuous monitoring. These patients often develop both thromboembolic and bleeding complications, acute coronary syndrome, cerebrovascular accident and pneumothorax. Expected to require complex approach with continuous presence and availability of tacking stitch remover, and increased ICU level nursing care -neither of which would be available at [facility]. The patient's best chance is to transfer to higher level of care where the above-mentioned services would be available. Admitting her to our hospital would not be beneficial to this patient as the services she needs are not available; on the other hand, from resource management perspective, inappropriately pulling and shifting resources would result in suboptimal care, not to this patient only, but would adversely affect other patients who are currently cared for as well. Considering all the above I cannot accept this patient to be admitted to [facility]. I coordinated the care with warehouser, hospitalist medical physicist and ER physician as well. If the patient would continue to decline and became comfort care, extubated and survived, we would admit her and be available to provide end-of-life care. I asked the nursing supervisor display fabrication to assist with nursing care if we can anyway help the ER. I briefly examined and saw the patient at ER room 9 around 10:30 PM. I reviewed the chart, current work-up, notes patient's history and medications.
[2021-03-12] MEDS ORDERED: PIPERACILLIN/TAZOBACTAM 4.5 GM in SODIUM CHLORIDE 0.9% MINIBAG 100 ML IV STA (02:23)
[2021-03-12] MEDS ORDERED: ACETAMINOPHEN 1,000 MG/100 ML 100 ML IV ONE ×2 (02:37→08:45)
--- NOTE | 2021-03-12 02:37 | ED Physician Documentation ---
ED Addendum - Addendum Addendum: 03/12/21 02:30 Received sign out from Dr. Duggan at end of his shift. Patient's pulse ox is slowly trending down and is low 60s. She also is having mostly hypotensive readings, as low as 70s. I subsequently discussed the case with Dr. Chong (MICU at [facility]). He again says patient is too unstable for transfer. He has no other recommendations regarding other interventions; recommends against pressors, as they will not help and could worsen hypoxemia. I called patient's 's phone number and someone picked up the phone but did not say anything. I could hear TV in the background and could hear breathing but there was no answer. I called the other number on the chart and left message to contact the ED for update. 03/12/21 03:38 I called spouse, Adair Soriano. I spoke with him and updated him on his 's condition. I informed him of the conversation I had with the MICU doctor at [facility]. I explained to him that she is extremely ill and might not make it through the night. He had no questions for me at this time and expressed understanding of her condition. I encouraged him to call back at any time for an update or if he has questions regarding her treatment and/or condition. 03/12/21 07:49 Care of patient turned over to Dr. Pedroza at end of my shift. Patient's blood pressures slowly trended in a favorable direction with most blood pressure readings in normotensive range towards end of my shift. He pulse ox had dropped to mid/lower 50s earlier in my shift but slowly trended to 70-low 70s.
[2021-03-12] MEDS ORDERED: SODIUM CHLORIDE 0.9% 1,000 ML IV STA ×2 (03:45→10:22)
[2021-03-12] MEDS: PROPOFOL 500 MG/50 ML 500 MG/50 ML VIAL IV SCH ×2 (04:15→05:15)
[2021-03-12] MEDS: PROPOFOL 1000 MG/100 ML 1,000 MG/100 ML BOTTLE IV SCH ×2 (06:57→09:33)
[2021-03-12] MEDS ORDERED: ROCURONIUM 500 MG in SODIUM CHLORIDE 0.9% 100ML 50 ML IV STA (07:27)
[2021-03-12] MEDS ORDERED: fentaNYL 2,500 MCG in SODIUM CHLORIDE 0.9% 200 ML IV STA (07:27)
--- NOTE | 2021-03-12 07:34 | ED Physician Documentation ---
ED Addendum - Addendum Addendum: 03/12/21 07:32 Care assumed at shift change of this critically ill 55-year-old morbidly obese woman with Covid pneumonia who is currently on the ventilator with maximal settings and continuing to have saturations in the 70s. She has been intermittently hypotensive. See previous notes. Efforts to transfer and admit have been fruitless so far. Patient seen at bedside. She is sedated on propofol and on a rocuronium drip. [facility] teleintensivist consult done with Dr. Geoff Murray who agrees with current can of care but does recommend repeat ABG. Also repeat x-ray. Agrees with need to transfer to higher level of care for veletri or ECMO consideration. 03/12/21 08:33 Procedure note, central line: Unable to obtain consent. The patient was prepped twice with ChloraPrep. I wore cap, mask, gown, sterile gloves. Full sterile sheet was utilized. Using real-time ultrasound guidance the left internal jugular vein was accessed and using Seldinger technique a triple-lumen 7 [place] central line was placed in standard fashion and sutured into place without immediate complications. 03/12/21 10:55 Repeat labs today show significant bandemia and 21% metamyelocytes. Blood gas this morning has deteriorated with significant acidosis and profound hypoxemia and a a gradient. She has gone into renal failure with her creatinine going from 0.9-2.3 today. Blood sugar remains high and she was given divided doses of insulin. Central line x-ray shows appropriate placement and no evidence of pneumothorax. She has significant pulmonary opacities on x-ray. We called [facility] sent today to see if they would reconsider transfer for consideration for ECMO or Veletri or other modalities not available to us in this critical access hospital. I spoke with the daughter several times by phone and also the patient's . Eventually the patient developed worsening shock and as we were preparing to start pressors she became bradycardic and even more hypoxic and degenerated into asystole. Given the profound illness it was felt that CPR would likely be futile and my understanding is that the family had already agreed with that from last night. Family was updated by phone about the patient's passing.Both the daughter and the came to the bedside and were counseled and questions were answered. Disposition: in the emergency department Critical care time 95 minutes spent in bedside care, documentation, review of labs and other diagnostics, and counseling the family. This excludes central line placement. 03/12/21 12:20
[2021-03-12 07:44] LABS: BASOPHILS % (AUTO) 0.9 %; HGB - HEMOGLOBIN 14.9 g/dL (12.0-16.0); LYMPHOCYTES % (AUTO) 13.4 %; MEAN CORPUSCULAR HEMOGLOBIN 28.1 pg (27.0-31.0); MEAN CORPUSCULAR HGB CONC 32.4 g/dL (32.0-36.0); MEAN CORPUSCULAR VOLUME 86.8 fL (81.0-99.0); MEAN PLATELET VOLUME 10.2 fL (7.9-10.8); MONOCYTES % (AUTO) 3.6 %; NEUTROPHILS % (AUTO) 80.3 %; PLT - PLATELET COUNT 203 10^3/uL (130-450); RED CELL DISTRIBUTION WIDTH 13.6 % (12.0-15.0); WHITE BLOOD COUNT 4.5 x10^3/uL (4.8-10.8)
[2021-03-12 07:49] LABS: ABNORMAL LYMPHS % (MANUAL) 0 %
[2021-03-12 08:00] LABS: CALCIUM 7.2 mg/dL (8.5-10.3); CREATININE 2.3 mg/dL (0.4-1.0); PHOSPHORUS 3.1 mg/dL (2.5-4.6); POTASSIUM 3.4 mmol/L (3.5-5.0)
[2021-03-12] MEDS ORDERED: PIPERACILLIN/TAZOBACTAM 4.5 GM in SODIUM CHLORIDE 0.9% MINIBAG 100 ML IV SCH (08:00)
[2021-03-12] MEDS ORDERED: INSULIN REGULAR HUMAN 100 UNIT/1 ML 10 ML MDV IVP STA ×2 (08:03→10:34)
--- NOTE | 2021-03-12 08:08 | XRAY Report ---
PROCEDURE: Chest 1 View X-Ray INDICATIONS: resp failure TECHNIQUE: One view of the chest was acquired. COMPARISON: 11/30/2018 and 03/11/2021 FINDINGS: Surgical changes and devices: Endotracheal tube tip projects approximately 5.0 cm above the kirill. N asogastric tube extends below the level of the diaphragm and extends off the [id number].. Lungs and pleura: No pneumothorax seen. Small left pleural effusion. Diffuse patchy airspace opacitie s of the bilateral hemithoraces not significantly changed. Findings are predominantly in the lower sulaiman ng zones. Diffuse interstitial prominence. Mediastinum: Mediastinal contours appear stable. Heart size is mildly enlarged. Bones and chest wall: No suspicious bony lesions. Overlying soft tissues appear unremarkable. IMPRESSION: Stable positioning of support equipment. Mild cardiomegaly with stable cardiopulmonary examination demonstrating persistent diffuse interstiti al prominence and patchy bilateral lower lung zone predominant airspace opacities. Findings may again represent pulmonary edema and/or concurrent infectious process. Reviewed by: Jag Sharma MD on 03/12/2021 8:07 AM PDT Approved by: Jag Sharma MD on 03/12/2021 8:07 AM PDT Station ID: [id number]
[2021-03-12 08:11] LABS: ABG BASE EXCESS -14.9 mmol/L (-2.0-3.0); ABG HCO3 14.1 mmol/L (22.0-26.0); ABG PCO2 45 mmHg (34-45); ABG TCO2 15.5 MMOL/L (21.0-29.0)
[2021-03-12 08:12] LABS: ABG MODE OF VENTILATION AC/VC; ABG RESPIRATORY RATE 25 b/min; ALLEN TEST POSITIVE
[2021-03-12 08:20] LABS: ABG OXYGEN SATURATION 68 % (94-98); ABG PH 7.12 (7.35-7.45); ABG PO2 38 mmHg (80-100)
[2021-03-12 08:38] LABS: BAND NEUTROPHILS % (MANUAL) 26 %; LYMPHOCYTES # (MANUAL) 0.3 10^3/uL (1.5-3.5); LYMPHOCYTES % (MANUAL) 6 %; METAMYELOCYTES % (MANUAL) 21 %; MYELOCYTES % (MANUAL) 5 %
[2021-03-12 08:43] LABS: PLATELET ESTIMATE, MANUAL NORMAL (130-450,000) (NORMAL); PLATELET MORPHOLOGY NORMAL APPEARANCE (NORMAL); RBC MORPHOLOGY (MULTIPLE) NORMAL APPEARANCE (NORMAL)
[2021-03-12 08:44] LABS: DIFFERENTIAL COMMENT MANUAL DIFFERENTIAL
[2021-03-12] MEDS ORDERED: ENOXAPARIN 100 MG/ML SYRINGE SUBQ SCH (09:00)
[2021-03-12] MEDS ORDERED: PANTOPRAZOLE 40 MG VIAL IV SCH (09:00)
[2021-03-12] MEDS ORDERED: PANTOPRAZOLE 40 MG VIAL IVP SCH (09:00)
[2021-03-12] MEDS ORDERED: DEXAMETHASONE 10 MG/ML VIAL IVP SCH (09:00)
--- NOTE | 2021-03-12 09:01 | XRAY Report ---
PROCEDURE: Chest for Line Placement INDICATIONS: Left IJ CVC placement TECHNIQUE: One view of the chest was acquired. COMPARISON: Same day chest radiograph FINDINGS: Surgical changes and devices: None. Endotracheal tube is in appropriate position. Enteric tube termi nates below the diaphragm out of the field of view, also in appropriate position. Interval placement of left IJ CVC, the distal tip of which projects over the inferior aspect of the SVC. Bilateral airsp rishi opacities are similar. IMPRESSION: Appropriate position of support devices. Unchanged bilateral airspace consolidation. Reviewed by: Dexter Griffith MD on 03/12/2021 9:00 AM PDT Approved by: Dexter Griffith MD on 03/12/2021 9:00 AM PDT Station ID: [id number]
[2021-03-12] MEDS ORDERED: PROPOFOL 500 MG/50 ML 500 MG/50 ML VIAL IV STA (09:16)
[2021-03-12 11:10] VITALS: BP 95/65
== END 2021-03-12 10:52 | disposition expired ==
LOC: EDUNIT# → ED 12:04
DX: U07.1 COVID-19 (principal); J12.82 Pneumonia due to coronavirus disease 2019; J96.01 Acute respiratory failure with hypoxia; A41.89 Other specified sepsis; R65.21 Severe sepsis with septic shock; N17.9 Acute kidney failure, unspecified; E87.2 Acidosis; E11.65 Type 2 diabetes mellitus with hyperglycemia; Z79.84 Long term (current) use of oral hypoglycemic drugs; I46.9 Cardiac arrest, cause unspecified; J45.909 Unspecified asthma, uncomplicated; F41.9 Anxiety disorder, unspecified; E66.01 Morbid (severe) obesity due to excess calories; Z68.41 Body mass index [BMI] 40.0-44.9, adult; Z87.891 Personal history of nicotine dependence
CPT/HCPCS: 0202U; 31500; 36415; 36556; 36600; 43753; 51702; 71045; 80048; 80053; 82803; 83605; 83690; 83735; 84100; 85025; 87040; 94002; 94003; 94640; 94660; 96361; 96365; 96366; 96368; 96372; 96375; 96376; 99291; 99292; A9270; J0131; J0330; J1170; J1650; J1815; J2060; J3010; 94770